=== PATIENT | female | born 1970 | race Caucasian/White ===

== ENCOUNTER 2024-01-12 10:10 | Outpatient (AMB) | payer OTHER, SELFPAY ==
[2024-01-12 10:37] VITALS: BP 134/76; PULSE 77; O2SAT 98; BMI 43.9
--- NOTE | 2024-01-12 10:37 | MHC.PC.OV ---
Vital Signs 01/12/24 10:37 Height 5 ft 9 in Weight 297 lb BMI 43.9 BP 134/76 Blood Pressure Location Lt brachial Position Sitting Pulse 77 Pulse Source Pulse Oximeter Pulse Oximetry (%) 98 Oxygen Delivery Method Room Air Intake Visit Reasons: Annual physical Intake Note: Weight management Allergies No Known Allergies Allergy (Verified 01/12/24 10:38) Medication List - Last Reconciled 01/12/24 by Shahram Jeffery MD No Known Home Meds Tobacco use date assessed: 01/12/24 Dental Screening Dental Screen Date: 01/12/24 Did you have a dental visit in the last 12 months?: Yes Did you have a dental problem in the last 6 months where you did not have access to dental care?: No Was dental information given to patient?: Patient has dentist HPI Annual physical HPI Details 53-year-old morbidly obese female with a history of Guillain-[place] coming in for physical exam last seen in 2020. Patient was referred for colon cancer screening. 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 Daughter No problems noted. Other Colon cancer Social History (Updated 01/12/24 @ 11:12 by Shahram Jeffery MD) Housing: House Alcohol intake: current Comment: once a week 1 drink Patient Tobacco Use Status: Never used Tobacco e-Cigarette/Vaping Use: Never Used Second Hand Smoke Exposure: No service: No Current occupational status: employed Cognitive needs: No Hearing needs: No Vision needs: Yes Questionnaire PHQ-9 Over the last 2 weeks, how often have you been bothered by any of the following problems? 1. Little interest or pleasure in doing things: more than half the days 2. Feeling down, depressed, or hopeless: more than half the days 3. Trouble falling or staying asleep, or sleeping too much: more than half the days 4. Feeling tired or having little energy: more than half the days 5. Poor appetite or overeating: several days 6. Feeling bad about yourself - or that you are a failure or have let yourself or your family down: not at all 7. Trouble concentrating on things, such as reading the newspaper or watching television: more than half the days 8. Moving or speaking so slowly that other people could have noticed. Or the opposite - being so fidgety or restless that you have been moving around a lot more than usual: not at all 9. Thoughts that you would be better off or of hurting yourself in some way: not at all Total score: 11 Depression Screening Interpretation: Positive Depression Screening Done: Yes Source: Developed by Drs. Sanjiv Conley, Gabby Peterson, Jair Restrepo and colleagues, with an educational melissa from [employer]. Thrive Questionnaire Date Thrive assessed: 01/12/24 I am a: Patient What is your living situation today?: I have a steady place to live Within the past 12 months, did the food you bought not last and you didn't have the money to get more?: Never true Within the past 12 months, did you worry whether your food would run out before you got money to buy more?: Never true Do you have trouble paying for medicines?: No Do you have trouble getting transportation to medical appointments?: No Do you have trouble paying your heating and electricity bill?: No Do you have trouble taking care of your child, family member or friend?: No Do you have trouble with day-to-day activities such as bathing, preparing meals, shopping, managing finances, etc.?: No Are you currently unemployed and looking for a job?: No Are you interested in more education?: No Currently or been in a relationship where the following occur: no concerns reported THRIVE Score: 0 AUDIT C Alcohol Use Questionnaire (AUDIT-C) 1. How often do you have a drink containing alcohol?: Monthly or less 2. How many drinks containing alcohol do you have on a typical day when you are drinking?: 1 or 2 3. How often do you have six or more drinks on one occasion?: Never Total Score: 1 RHIANNA-7 AMB Questionnaire RHIANNA-7 Date RHIANNA - 7 assessed: 01/12/24 Feeling nervous, anxious, or on edge: 1 = Several days Not being able to stop or control worryin = Several days Worrying too much about different things: 1 = Several days Trouble relaxin = Several days Being so restless that it is hard to sit still: 1 = Several days Becoming easily annoyed or irritable: 1 = Several days Feeling afraid as if something awful might happen: 1 = Several days Total RHIANNA-7 score (0-4 normal; 5-9 mild; 10-14 moderate; 15-21 severe): 7 Source: Developed by Drs. Sanjiv Conley, Gabby Peterson, Jair Restrepo and colleagues, with an educational melissa from [employer]. Review of Systems Const Denies poor appetite and Denies weakness Eyes Denies no additional complaints ENT Reports Normal hearing present, Denies dizziness, Denies nasal congestion, Denies tinnitus and Denies sore throat Card Denies chest pain, Denies syncope, Denies rapid heart rate and Denies dyspnea Resp Denies cough and Denies dyspnea GI Denies change in stool character, Reports constipation, Denies diarrhea, Denies nausea and Denies vomiting Denies urinary frequency, Denies difficulty voiding and Denies dysuria Neuro Reports Normal hearing present, Denies confusion, Denies dizziness, Denies syncope and Denies weakness Psych Denies confusion Physical exam (Primary Care) Vital Signs: Last Vital Signs Pulse 77 01/12/24 10:37 BP 134/76 01/12/24 10:37 Pulse Ox 98 01/12/24 10:37 Oxygen Delivery Method Room Air 01/12/24 10:37 BMI result Body Mass Index 43.9 Tobacco/Smoking Status: Tobacco use Status Tobacco use date assessed 01/12/24 01/12/24 10:44 Patient Tobacco Use Status Never used Tobacco 01/12/24 10:37 e-Cigarette/Vaping Use Never Used 01/12/24 10:37 PHQ-9: PHQ-9 Score PHQ-9: Total score 11 01/12/24 10:44 Depression Screening Interpretation: Positive Thrive Assessment: Date of Thrive Assessment Date Thrive assessed 01/12/24 01/12/24 10:44 Currently or been in a relationship where the following occur: no concerns reported Const General: No confusion Orientation/consciousness: No confusion HENMT Head: Yes normocephalic Ears: external ears normal and TM's normal bilaterally Face and sinus: Yes normal facial exam Mouth: moist mucous membranes Throat: Yes tonsils normal Eyes Conjunctivae: conjunctivae normal Pupils: Equal, round and reactive pupils present and Pupil accommodation reflex normal Direct Ophthalmoscopy: normal light reflex Neck Neck: No lymphadenopathy Thyroid: Thyroid normal Chest Chest palpation & inspection: normal inspection of the chest Resp Effort & Inspection: normal respiratory effort and no audible wheezes Auscultation: clear to auscultation bilaterally, no crackles, no wheezes and lung sounds not diminished Cardio Rate: regular rate Rhythm: regular rhythm Peripheral pulses: radial pulses present and dorsalis pedis present GI Palpation (GI): no masses Auscultation: normal bowel sounds and normoactive bowel sounds Rectal Exam - Female: deferred Skin General skin exam: no rashes or lesions noted Rashes: no rashes Neuro General: No confusion Cranial nerves: Yes Equal, round and reactive pupils present and Yes Normal hearing present Cognition (Neuro): normal cognition Gait exam (Neuro): Normal gait present Motor exam (neuro): 5/5 motor strength present throughout Deep tendon reflexes (DTR's): Right brachioradialis reflex intensity grade: 2+, Left brachioradialis reflex intensity grade: 2+, Right patellar reflex intensity grade: 2+ and Left patellar reflex intensity grade: 2+ Extrem General: No edema Assessment and Plan Assessment & Plan (1) Annual physical exam: Code(s): Z00.00 - Encounter for general adult medical examination without abnormal findings (2) Morbid obesity: Code(s): E66.01 - Morbid (severe) obesity due to excess calories Plan: Diet and exercise (3) Colon cancer screening: Code(s): Z12.11 - Encounter for screening for malignant neoplasm of colon Plan: Patient is reminded about colon cancer screening (4) Breast cancer screening by mammogram: Code(s): Z12.31 - Encounter for screening mammogram for malignant neoplasm of breast Plan: Patient is reminded about mammogram (5) Vaginal high risk HPV DNA test positive: Code(s): R87.811 - Vaginal high risk human papillomavirus (HPV) DNA test positive Plan: Continue to follow-up with gynecology for yearly Pap smear (6) Hammer toe of right foot: Code(s): M20.41 - Other hammer toe(s) (acquired), right foot (7) Bunion: Code(s): M21.619 - Bunion of unspecified foot (8) Ankle pain, left: Code(s): M25.572 - Pain in left ankle and joints of left foot Orders: Orders Thyroid Stimulating Hormone Today E66.01 - Morbid (severe) obesity due to excess calories Free T4 (Free Thyroxine) Today E66.01 - Morbid (severe) obesity due to excess calories Vitamin D 25-OH Total Today E66.01 - Morbid (severe) obesity due to excess calories XR ankle LT min 3V Today M25.572 - Pain in left ankle and joints of left foot Complete Blood Count Auto Diff Today E66.01 - Morbid (severe) obesity due to excess calories Comprehensive Met. Panel Today E66.01 - Morbid (severe) obesity due to excess calories Lipid Panel Today E66.01 - Morbid (severe) obesity due to excess calories, E78.00 - Pure hypercholesterolemia, unspecified Vitamin B12 and Folate Today E66.01 - Morbid (severe) obesity due to excess calories Referrals Podiatry Referral M20.41 - Other hammer toe(s) (acquired), right foot, M21.619 - Bunion of unspecified foot Orthopedics Referral M25.572 - Pain in left ankle and joints of left foot Gastroenterology Referral Z12.11 - Encounter for screening for malignant neoplasm of colon Medications: New semaglutide (weight loss) (Wegovy) administer weeks 1 through 4 of therapy 0.25 mg (0.5 mL) subcut QWEEK 2 mL 1RF E66.01 - Morbid (severe) obesity due to excess calories Coding Level of Care Code Est Pt Prev Care 40-64y(23453) Diagnoses Annual physical exam Z00.00 Morbid obesity E66.01 Colon cancer screening Z12.11 Breast cancer screening by mammogram Z12.31 Vaginal high risk HPV DNA test positive R87.811 Hammer toe of right foot M20.41 Bunion M21.619 Ankle pain, left M25.572
== END 2024-01-12 11:34 | disposition home or self-care (01) ==
PROVIDERS: PCP Internal Medicine; Visit Provider Internal Medicine
DX: Z00.00 Encounter for general adult medical examination without abnormal findings (principal); E66.01 Morbid (severe) obesity due to excess calories; Z12.11 Encounter for screening for malignant neoplasm of colon; Z68.41 Body mass index [BMI] 40.0-44.9, adult; Z12.31 Encounter for screening mammogram for malignant neoplasm of breast; R87.811 Vaginal high risk human papillomavirus (HPV) DNA test positive; M20.41 Other hammer toe(s) (acquired), right foot; M21.619 Bunion of unspecified foot; M25.572 Pain in left ankle and joints of left foot
CPT/HCPCS: 99396

== ENCOUNTER 2024-02-07 09:05 | Outpatient (AMB) | payer OTHER, SELFPAY ==
--- NOTE | 2024-02-07 09:25 | A.OFFVIS_ITS ---
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 Patient reports that she was previously seen by Dr. Hernandez in the past for a broken ankle 2x. Currently she has constant swelling that increases throughout the day. She has a decrease in her ROM. 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 She states she has pain, limited ROM as well as constant swelling that aggravates throughout the day. She was previously seen by Dr. Hernandez for her pain. She has not had physical therapy in the past. [facility] Medical History (Updated 02/07/24 @ 10:00 by Mike Holman PA-C) Guillain [place]? syndrome Surgical History Hx of laparoscopic gastric banding Family History (Updated 01/12/24 @ 11:12 by Shahram Jeffery MD) Mother Lung cancer Father Skin cancer Son No problems noted. Daughter No problems noted. Other Colon cancer Social History (Updated 01/12/24 @ 11:12 by Shahram Jeffery MD) Housing: House Alcohol intake: current Comment: once a week 1 drink Patient Tobacco Use Status: Never used Tobacco e-Cigarette/Vaping Use: Never Used Second Hand Smoke Exposure: No service: No Current occupational status: employed Cognitive needs: No Hearing needs: No Vision needs: Yes Review of Systems Const All systems reviewed & are unremarkable except as noted in HPI and below Physical Exam Const General: cooperative, healthy appearing, comfortable, no acute distress, well developed and alert Orientation/consciousness: patient oriented x3 HEENT Head: Yes normal to inspection, Yes normocephalic and Yes atraumatic Eyes General: appearance normal, both eyes and all related structures Resp Effort & Inspection: normal respiratory effort and able to speak in complete sentences Cardio Rate: regular rate Peripheral pulses: Peripheral pulses 2+ throughout GI Palpation (GI): Soft to palpation Skin Lesions: no lesions Rashes: no rashes Neuro General: patient oriented x3 Extrem Other: Left ankle: Normal to inspection with diffuse tenderness over the dorsum of the foot, no deformity along the Achilles tendon, negative Giordano?s. No pain along the syndesmosis or anterior tibia. No laxity, NVI. Results Reviewed Results Reviewed: Xrays were obtained in the office today and personally reviewed by me of the right ankle show oa , ankle mortise intact. Assessment & Plan Assessment & Plan (1) Osteoarthritis of left ankle: Code(s): M19.072 - Primary osteoarthritis, left ankle and foot Category: Medical (2) Osteoarthritis of left foot: Code(s): M19.072 - Primary osteoarthritis, left ankle and foot Category: Medical Plan At this time, we will proceed with a course of physical therapy which was ordered in the office today. I also recommend she uses the ankle support brace for stabilization while walking and activities. If symptoms persist or worsens or she has significant limitations, patient will contact the office for a referral to foot and ankle specialist, otherwise follow-up as needed. Orders: Orders XR ankle LT min 3V Today M25.572 - Pain in left ankle and joints of left foot PT Evaluation and Treatment Today M19.072 - Primary osteoarthritis, left ankle and foot Patient Instructions: Scribed for Mike Holman PA-C, by Ovidio Talavera medical van driver, on 02/07/2024 at 9:15 AM EST.? I, Mike Holman PA-C, have personally reviewed and agree with the information entered by the scribe. Coding Level of Care Code New Pt Level 3 (93225) Diagnoses Osteoarthritis of left ankle M19.072 Osteoarthritis of left foot M19.072
[2024-02-07 10:51] VITALS: BMI 43.9
== END 2024-02-07 10:45 | disposition home or self-care (01) ==
PROVIDERS: PCP Internal Medicine; Visit Provider Physician Assistant
DX: M19.072 Primary osteoarthritis, left ankle and foot (principal)
CPT/HCPCS: 99203

== ENCOUNTER 2024-02-07 12:54 | Outpatient (REF) | payer OTHER, SELFPAY ==
--- NOTE | ~2024-02-07 | XR_ITS ---
EXAMINATION: XR ANKLE, LEFT CLINICAL INFORMATION: Pain in left ankle and joints of foot. COMPARISON: X-ray June 18, 2015 left foot. TECHNIQUE: AP, lateral, and mortise views of the left ankle. FINDINGS: Bones are diffusely demineralized. Joint effusion. Soft tissue swelling. Severe degenerative changes with hypertrophic change, loss of the joint space and remodeling at the talonavicular joint. Diffuse soft tissue swelling at the ankle. Joint effusion. XR/XR ankle LT min 3V IMPRESSION: 1. Interval progression of severe degenerative changes at the talonavicular joint. 2. Diffuse soft tissue swelling at the ankle. Joint effusion.
== END 2024-02-07 12:55 | disposition home or self-care (01) ==
LOC: HO.HOSX 12:54
PROVIDERS: Visit Provider Physician Assistant
DX: M25.572 Pain in left ankle and joints of left foot (principal)
CPT/HCPCS: 73610

== ENCOUNTER 2024-04-15 13:13 | Outpatient (AMB) | payer OTHER, SELFPAY ==
--- NOTE | 2024-04-15 13:20 | MHC.OFFVIS ---
Vital Signs 04/15/24 13:21 Height 5 ft 9 in Weight 268 lb 15.423 oz BMI 39.7 BP 106/55 L Blood Pressure Location Lt brachial Position Sitting Pulse 70 Intake Visit Reasons: Colonoscopy Screening Intake Note: Kirstie presents in the office as a colonoscopy screening. CC: She states that she is not having any concerns - passed a year ago and she is here to make sure that everything is good. 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 female with past medical history of osteoarthritis, obesity, Guillain [place] syndrome is here today for pre colonoscopy screening.? Patient was sent to us by her PCP.? This is her first colonoscopy screening.? Patient denies any gastrointestinal symptoms in the past or at present.? Denies any personal or family history of gastrointestinal disease, colon polyps, or CRC.? Denies history of difficulty with sedation or anesthesia in the past.? Negative for history of sleep apnea.? Denies any history of cardiac, renal, pulmonary, or hepatic disease.?? No history of infectious? diseases like hepatitis A, B, C, HIV or tuberculosis.? 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 Daughter No problems noted. Family/Other Colon cancer Mother Lung cancer Social History Housing: House Alcohol intake: current Comment: once a week 1 drink Patient Tobacco Use Status: Never used Tobacco e-Cigarette/Vaping Use: Never Used Second Hand Smoke Exposure: No service: No Current occupational status: employed Cognitive needs: No Hearing needs: No Vision needs: Yes Review of Systems Const Denies weight gain and Denies weight loss ENT Reports no additional complaints, Denies dysphagia and Denies odynophagia Card Reports no additional complaints Resp Reports no additional complaints GI Denies abdominal pain, Denies belching, Denies melena, Denies bloating, Denies change in bowel habits, Denies dysphagia, Denies excessive flatus, Denies dyspepsia, Denies heartburn, Denies diarrhea, Denies loose stools, Denies nausea, Denies odynophagia and Denies vomiting Musc Reports no additional complaints Neuro Reports no additional complaints Psych Reports no additional complaints Endo Reports no additional complaints Physical Exam Vital Signs: Last Vital Signs Pulse 70 04/15/24 13:21 BP 106/55 L 04/15/24 13:21 BMI result Body Mass Index 39.7 Const General: healthy appearing and no acute distress Nutritional Appearance: obese Orientation/consciousness: patient oriented x3 Resp Effort & Inspection: normal respiratory effort, able to speak in complete sentences, no tracheal deviation and symmetric chest movement Auscultation: clear to auscultation bilaterally Cardio Rate: regular rate GI Inspection: Yes normal to inspection, No distended and Yes obesity Palpation (GI): Soft to palpation, not firm, nontender and No hepatosplenomegaly present Auscultation: normal bowel sounds General: Yes no CVA tenderness Back/Spine/Pelvis Back: no CVA tenderness Skin General skin exam: elasticity normal, turgor normal and dry skin Neuro General: patient oriented x3 Psych Appearance: grossly normal Mental Status: mental status grossly normal Assessment & Plan Assessment & Plan (1) Colon cancer screening: Code(s): Z12.11 - Encounter for screening for malignant neoplasm of colon Category: Medical Plan Patient denies any GI, cardiac or respiratory symptoms.? Denies any issues with anesthesia in the past.? Denies any history of sleep apnea.? No history infectious diseases in the past or present.? Not on any anticoagulation therapy.? Patient is on semaglutide. Instructed to stop taking more than 7 days before she goes for procedure. Patient believes that she will be on it for maybe couple more months so she can loose little bit more lb. Patient does not want to be on it for a long period of time. No family or personal history of colon cancer or polyps.? Patient denies melena, hematochezia, unintentional weight loss or ribbon like stools.? Discussed at length the pre-procedure,? prep, diet & medications as well as what to expect prior, during and after the procedure.?? Stressed the importance of good bowel prep.? Recommended the use of Vaseline or Calmoseptine OTC & baby wipes with bowel movements to promote comfort.? ?Patient verbalizes understanding and agrees to plan of care.? She was given the opportunity to ask questions and all questions answered.? We will see her after the procedure.? Medications: New bisacodyl (Dulcolax (bisacodyl)) take 4 tabs at noon the day before your colonoscopy 20 mg (4 x 5 mg) PO ONCE 4 tabs 0RF 1 day Z12.11 - Encounter for screening for malignant neoplasm of colon polyethylene glycol 3350 (Miralax) As directed by gastroenterology department at [facility] 238 grams PO ONCE 238 grams 0RF Z12.11 - Encounter for screening for malignant neoplasm of colon Coding Level of Care Code New Pt Level 3 (39904) Diagnoses Colon cancer screening Z12.11 Time Spent (min) 40 Comment 30 minutes spent with patient and additional 10 minutes spent reviewing her records
[2024-04-15 13:21] VITALS: BP 106/55; PULSE 70; BMI 39.7
== END 2024-04-15 14:07 | disposition home or self-care (01) ==
PROVIDERS: PCP Internal Medicine; Visit Provider Nurse Practitioner Family
DX: Z01.818 Encounter for other preprocedural examination (principal); Z12.11 Encounter for screening for malignant neoplasm of colon
CPT/HCPCS: S0285

== ENCOUNTER → 2024-04-15 13:13 | Outpatient (BNVA) | payer OTHER, SELFPAY | PROVIDERS: PCP Internal Medicine; Visit Provider Nurse Practitioner Family ==

== ENCOUNTER 2024-04-25 13:21 | Outpatient (AMB) | payer OTHER, SELFPAY ==
[2024-04-25 13:21] VITALS: BP 128/88; PULSE 75; O2SAT 99; BMI 39.4
--- NOTE | 2024-04-25 13:21 | MHC.PC.OV ---
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 Patient is mammogram is done in [facility]. Colonoscopy has met with Gastroenterology and planning for colon test saw Dermatology recently. For angioma, seborrheic keratosis lentiginous nevi and eczema. Had an x-ray of the left ankle showing severe degenerative changes with some swelling. Advised physical therapy and ankle brace. 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 Daughter No problems noted. Family/Other Colon cancer Mother Lung cancer Social History Housing: House Alcohol intake: current Comment: once a week 1 drink Patient Tobacco Use Status: Never used Tobacco e-Cigarette/Vaping Use: Never Used Second Hand Smoke Exposure: No service: No Current occupational status: employed Cognitive needs: No Hearing needs: No Vision needs: Yes Questionnaire PHQ-9 Over the last 2 weeks, how often have you been bothered by any of the following problems? 1. Little interest or pleasure in doing things: more than half the days 2. Feeling down, depressed, or hopeless: more than half the days 3. Trouble falling or staying asleep, or sleeping too much: more than half the days 4. Feeling tired or having little energy: more than half the days 5. Poor appetite or overeating: several days 6. Feeling bad about yourself - or that you are a failure or have let yourself or your family down: not at all 7. Trouble concentrating on things, such as reading the newspaper or watching television: more than half the days 8. Moving or speaking so slowly that other people could have noticed. Or the opposite - being so fidgety or restless that you have been moving around a lot more than usual: not at all 9. Thoughts that you would be better off or of hurting yourself in some way: not at all Total score: 11 Depression Screening Interpretation: Positive Depression Screening Done: Yes Source: Developed by Drs. Sanjiv Conley, Gabby Peterson, Jair Restrepo and colleagues, with an educational melissa from [employer]. Thrive Questionnaire Date Thrive assessed: 01/12/24 AUDIT C Alcohol Use Questionnaire (AUDIT-C) 1. How often do you have a drink containing alcohol?: Monthly or less 2. How many drinks containing alcohol do you have on a typical day when you are drinking?: 1 or 2 3. How often do you have six or more drinks on one occasion?: Never Total Score: 1 RHIANNA-7 AMB Questionnaire RHIANNA-7 Date RHIANNA - 7 assessed: 01/12/24 Source: Developed by Drs. Sanjiv Conley, Gabby Peterson, Jair Restrepo and colleagues, with an educational melissa from [employer]. Physical exam (Primary Care) Vital Signs: Last Vital Signs Pulse 75 04/25/24 13:21 BP 128/88 04/25/24 13:21 Pulse Ox 99 04/25/24 13:21 Oxygen Delivery Method Room Air 04/25/24 13:21 BMI result Body Mass Index 39.4 Tobacco/Smoking Status: Tobacco use Status Tobacco use date assessed 01/12/24 04/25/24 13:28 Patient Tobacco Use Status Never used Tobacco 04/25/24 13:28 e-Cigarette/Vaping Use Never Used 04/25/24 13:28 PHQ-9: PHQ-9 Score PHQ-9: Total score 11 04/25/24 13:28 Depression Screening Interpretation: Positive Thrive Assessment: Date of Thrive Assessment Date Thrive assessed 01/12/24 04/25/24 13:28 Const General: alert; No acute distress Eyes Conjunctivae: conjunctivae normal Resp Auscultation: clear to auscultation bilaterally Cardio Rate: regular rate Rhythm: regular rhythm GI Inspection: Yes normal to inspection Extrem General: Yes normal to inspection and No edema Assessment and Plan Assessment & Plan (1) Osteoarthritis of left ankle: Code(s): M19.072 - Primary osteoarthritis, left ankle and foot Plan: Patient is being followed up by ortho and has been advised physical therapy and an ankle brace. Was being referred to a specialist. (2) Obesity (BMI 30-39.9): Code(s): E66.9 - Obesity, unspecified Plan: Diet and exercise, noted 30 lb weight loss (3) Colon cancer screening: Code(s): Z12.11 - Encounter for screening for malignant neoplasm of colon Plan: Patient has met with Gastroenterology and planned colonoscopy. Coding Level of Care Code Est Pt Level 4 (47213) Diagnoses Osteoarthritis of left ankle M19.072 Obesity (BMI 30-39.9) E66.9 Colon cancer screening Z12.11
== END 2024-04-25 14:34 | disposition home or self-care (01) ==
PROVIDERS: PCP Internal Medicine; Visit Provider Internal Medicine
DX: M19.072 Primary osteoarthritis, left ankle and foot (principal); E66.9 Obesity, unspecified; Z12.11 Encounter for screening for malignant neoplasm of colon; Z68.39 Body mass index [BMI] 39.0-39.9, adult
CPT/HCPCS: 99214

== ENCOUNTER 2024-09-09 16:38 | Outpatient (AMB) | payer OTHER, SELFPAY ==
[2024-09-09 16:42] VITALS: BP 114/66; PULSE 96; O2SAT 95; BMI 36.1
--- NOTE | 2024-09-09 16:42 | MHC.PC.OV ---
Vital Signs 09/09/24 16:42 Height 5 ft 9 in Weight 244 lb 6 oz BMI 36.1 BP 114/66 Blood Pressure Location Lt brachial Position Sitting Pulse 96 Pulse Source Pulse Oximeter Pulse Oximetry (%) 95 Oxygen Delivery Method Room Air Intake Visit Reasons: Obesity Allergies No Known Allergies Allergy (Verified 09/09/24 16:46) Tobacco use date assessed: 09/09/24 Dental Screening Dental Screen Date: 09/09/24 Did you have a dental visit in the last 12 months?: Yes Did you have a dental problem in the last 6 months where you did not have access to dental care?: No Was dental information given to patient?: Patient has dentist HPI Obesity HPI Details The patient is a 54-year-old female presenting with a follow-up for weight management. The patient reports significant weight loss of 58 pounds, down from a previous maximum weight noted in her medical records. Over the course of this weight loss, the patient notes difficulty in reducing weight beyond the current level, with a target weight of 200 pounds. Despite the weight loss, the patient has discussed with her OBGYN that there remains approximately 10 to 15 pounds attributable to excess skin due to previous weight gain and childbirth. She uses a weight loss medication and expresses satisfaction with its current effectiveness, allowing her to feel less hunger. However, she shows a desire to discontinue its use in the future. The patient practices high protein dietary habits and has not eliminated specific foods but has altered her overall consumption pattern and environment, aiming at healthy weight management. 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 Despite this contraindication, she has successfully avoided COVID-19 infection. The patient is scheduled to travel to the [facility] for the first time. Her concern is about potential infections due to crowded environments and a lack of vaccinations. She plans to follow preventive measures during travel, including the use of masks. The patient has no symptoms of leg swelling and is mindful of familial history but takes preventative measures. She is also scheduled to have a colonoscopy and has been advised to withhold a particular treatment until after the procedure. She practices working remotely, maintaining safety against respiratory viruses during the flu season. 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 Daughter No problems noted. Family/Other Colon cancer Mother Lung cancer Social History Housing: House Alcohol intake: current Comment: once a week 1 drink Patient Tobacco Use Status: Never used Tobacco e-Cigarette/Vaping Use: Never Used Second Hand Smoke Exposure: No service: No Current occupational status: employed Cognitive needs: No Hearing needs: No Vision needs: Yes Questionnaire PHQ-9 Over the last 2 weeks, how often have you been bothered by any of the following problems? 1. Little interest or pleasure in doing things: more than half the days 2. Feeling down, depressed, or hopeless: more than half the days 3. Trouble falling or staying asleep, or sleeping too much: more than half the days 4. Feeling tired or having little energy: more than half the days 5. Poor appetite or overeating: several days 6. Feeling bad about yourself - or that you are a failure or have let yourself or your family down: not at all 7. Trouble concentrating on things, such as reading the newspaper or watching television: more than half the days 8. Moving or speaking so slowly that other people could have noticed. Or the opposite - being so fidgety or restless that you have been moving around a lot more than usual: not at all 9. Thoughts that you would be better off or of hurting yourself in some way: not at all Total score: 11 Depression Screening Interpretation: Positive Depression Screening Done: Yes Source: Developed by Drs. Sanjiv Conley, Gabby Peterson, Jair Restrepo and colleagues, with an educational melissa from [employer]. Thrive Questionnaire Date Thrive assessed: 09/09/24 I am a: Patient What is your living situation today?: I have a steady place to live Within the past 12 months, did the food you bought not last and you didn't have the money to get more?: Never true Within the past 12 months, did you worry whether your food would run out before you got money to buy more?: Never true Do you have trouble paying for medicines?: No Do you have trouble getting transportation to medical appointments?: No Do you have trouble paying your heating and electricity bill?: No Do you have trouble taking care of your child, family member or friend?: No Do you have trouble with day-to-day activities such as bathing, preparing meals, shopping, managing finances, etc.?: No Are you currently unemployed and looking for a job?: No Are you interested in more education?: No THRIVE Score: 0 AUDIT C Alcohol Use Questionnaire (AUDIT-C) 1. How often do you have a drink containing alcohol?: Monthly or less 2. How many drinks containing alcohol do you have on a typical day when you are drinking?: 1 or 2 3. How often do you have six or more drinks on one occasion?: Never Total Score: 1 RHIANNA-7 AMB Questionnaire RHIANNA-7 Date RHIANNA - 7 assessed: 09/09/24 Feeling nervous, anxious, or on edge: 1 = Several days Not being able to stop or control worryin = Several days Worrying too much about different things: 1 = Several days Trouble relaxin = Several days Being so restless that it is hard to sit still: 1 = Several days Becoming easily annoyed or irritable: 1 = Several days Feeling afraid as if something awful might happen: 1 = Several days Total RHIANNA-7 score (0-4 normal; 5-9 mild; 10-14 moderate; 15-21 severe): 7 Source: Developed by Drs. Sanjiv Conley, Gabby Peterson, Jair Restrepo and colleagues, with an educational melissa from [employer]. Physical exam (Primary Care) Vital Signs: Last Vital Signs Pulse 96 09/09/24 16:42 BP 114/66 09/09/24 16:42 Pulse Ox 95 09/09/24 16:42 Oxygen Delivery Method Room Air 09/09/24 16:42 BMI result Body Mass Index 36.1 Tobacco/Smoking Status: Tobacco use Status Tobacco use date assessed 09/09/24 09/09/24 16:48 Patient Tobacco Use Status Never used Tobacco 09/09/24 16:42 e-Cigarette/Vaping Use Never Used 09/09/24 16:42 PHQ-9: PHQ-9 Score PHQ-9: Total score 11 09/09/24 17:04 Depression Screening Interpretation: Positive Thrive Assessment: Date of Thrive Assessment Date Thrive assessed 09/09/24 09/09/24 16:48 Const General: alert; No acute distress Eyes Conjunctivae: conjunctivae normal Resp Auscultation: clear to auscultation bilaterally Cardio Rate: regular rate Rhythm: regular rhythm GI Inspection: Yes normal to inspection Extrem General: Yes normal to inspection and No edema Coding Level of Care Code Est Pt Level 3 (00607) Diagnoses Obesity (BMI 30-39.9) E66.9 Assessment & Plan Assessment & Plan (1) Obesity (BMI 30-39.9): Code(s): E66.9 - Obesity, unspecified Category: Medical Plan: doing good lost 58 lbs all in all Plan - The patient will continue with her current weight loss medication, with plans to reduce its use once desired weight goals are achieved. Further high-protein dietary modifications will be encouraged, without complete elimination of food groups, ensuring sustained health. 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 - The patient will attend a scheduled colonoscopy and will resume regular medication regimen post-procedure as advised by the bookkeeper assistant. - For travel to the [facility], the patient is advised to use KN95 masks and maintain rigorous hand hygiene to avoid respiratory and gastrointestinal infections. The patient will also monitor for symptoms of respiratory or gastrointestinal distress during and after travel. - Regular physical activity and nutrition management will be emphasized for continued weight maintenance and avoidance of comorbid conditions. Medications: Refilled semaglutide (weight loss) administer weeks 1 through 4 of therapy 1 mg (0.5 mL) subcut QWEEK 2.5 mL 4RF 1 month E66.01 - Morbid (severe) obesity due to excess calories
== END 2024-09-09 17:13 | disposition home or self-care (01) ==
PROVIDERS: PCP Internal Medicine; Visit Provider Internal Medicine
DX: E66.812 Obesity, class 2 (principal); Z68.36 Body mass index [BMI] 36.0-36.9, adult

== ENCOUNTER 2024-12-09 14:42 | Outpatient (AMB) | payer OTHER, SELFPAY ==
[2024-12-09 14:50] VITALS: BP 110/84; PULSE 71; TEMP 36.2; O2SAT 99; BMI 35.8
--- NOTE | 2024-12-09 14:50 | A.OFFPC_ITS ---
Vital Signs 12/09/24 14:50 Height 5 ft 9 in Weight 242 lb 8 oz BMI 35.8 BP 110/84 Blood Pressure Location Lt brachial Position Sitting Pulse 71 Pulse Source Pulse Oximeter Temp 97.1 F Temp Source Temporal Artery Scan Pulse Oximetry (%) 99 Oxygen Delivery Method Room Air Intake Visit Reasons: 3 Months f/u Allergies No Known Allergies Allergy (Verified 12/09/24 14:53) Medication List - Last Reconciled 12/09/24 by Shahram Jeffery MD semaglutide (weight loss) 1.7 mg (0.75 mL) subcut QWEEK 1 month Tobacco use date assessed: 12/09/24 Dental Screening Dental Screen Date: 12/09/24 Did you have a dental visit in the last 12 months?: Yes Did you have a dental problem in the last 6 months where you did not have access to dental care?: No Was dental information given to patient?: Patient has dentist [facility] Medical History Ankle pain, left Morbid obesity 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 Daughter No problems noted. Family/Other Colon cancer Mother Lung cancer Social History Housing: House Are you a primary lawn care professional to a significant other at home: No Do you presently have visiting nurse or other home services: No Alcohol intake: current Alcohol intake frequency: a few times a month Comment: once a week 1 drink Patient Tobacco Use Status: Never used Tobacco e-Cigarette/Vaping Use: Never Used Second Hand Smoke Exposure: No service: No Current occupational status: employed Cognitive needs: No Hearing needs: No Vision needs: Yes Questionnaire PHQ-9 Over the last 2 weeks, how often have you been bothered by any of the following problems? 1. Little interest or pleasure in doing things: not at all 2. Feeling down, depressed, or hopeless: not at all 3. Trouble falling or staying asleep, or sleeping too much: not at all 4. Feeling tired or having little energy: not at all 5. Poor appetite or overeating: not at all 6. Feeling bad about yourself - or that you are a failure or have let yourself or your family down: not at all 7. Trouble concentrating on things, such as reading the newspaper or watching television: not at all 8. Moving or speaking so slowly that other people could have noticed. Or the opposite - being so fidgety or restless that you have been moving around a lot more than usual: not at all 9. Thoughts that you would be better off or of hurting yourself in some way: not at all Total score: 0 Depression Screening Interpretation: Negative Depression Screening Done: Yes 11341 - PHQ-9 Billing: Yes Source: Developed by Drs. Sanjiv Conley, Gabby Peterson, Jair Restrepo and colleagues, with an educational melissa from [employer] ([place]). Thrive Questionnaire Date Thrive assessed: 12/09/24 I am a: Patient What is your living situation today?: I have a steady place to live Within the past 12 months, did the food you bought not last and you didn't have the money to get more?: Never true Within the past 12 months, did you worry whether your food would run out before you got money to buy more?: Never true Do you have trouble paying for medicines?: No Do you have trouble getting transportation to medical appointments?: No Do you have trouble paying your heating and electricity bill?: No Do you have trouble taking care of your child, family member or friend?: No Do you have trouble with day-to-day activities such as bathing, preparing meals, shopping, managing finances, etc.?: No Are you currently unemployed and looking for a job?: No Are you interested in more education?: No THRIVE Score: 0 AUDIT C Alcohol Use Questionnaire (AUDIT-C) 1. How often do you have a drink containing alcohol?: Monthly or less 2. How many drinks containing alcohol do you have on a typical day when you are drinking?: 1 or 2 3. How often do you have six or more drinks on one occasion?: Less than monthly Total Score: 2 RHIANNA-7 AMB Questionnaire RHIANNA-7 Date RHIANNA - 7 assessed: 12/09/24 Feeling nervous, anxious, or on edge: 0 = Not at all Not being able to stop or control worryin = Not at all Worrying too much about different things: 0 = Not at all Trouble relaxin = Not at all Being so restless that it is hard to sit still: 0 = Not at all Becoming easily annoyed or irritable: 0 = Not at all Feeling afraid as if something awful might happen: 0 = Not at all Total RHIANNA-7 score (0-4 normal; 5-9 mild; 10-14 moderate; 15-21 severe): 0 Source: Developed by Drs. Sanjiv Conley, Gabby Peterson, Jair Restrepo and colleagues, with an educational melissa from [employer] ([place]). RHIANNA-7 Assessment Billing RHIANNA-7 Assessment Tool: RHIANNA-7 Assessment 15462 Physical exam (Primary Care) Vital Signs: Last Vital Signs Temp 97.1 F 12/09/24 14:50 Pulse 71 12/09/24 14:50 BP 110/84 12/09/24 14:50 Pulse Ox 99 12/09/24 14:50 Oxygen Delivery Method Room Air 12/09/24 14:50 BMI result Body Mass Index 35.8 Tobacco/Smoking Status: Tobacco use Status Tobacco use date assessed 12/09/24 12/09/24 14:56 Patient Tobacco Use Status Never used Tobacco 12/09/24 14:52 e-Cigarette/Vaping Use Never Used 12/09/24 14:52 PHQ-9: PHQ-9 Score PHQ-9: Total score 0 12/09/24 14:56 Depression Screening Interpretation: Negative Thrive Assessment: Date of Thrive Assessment Date Thrive assessed 12/09/24 12/09/24 14:56 Const General: alert; No acute distress Eyes Conjunctivae: conjunctivae normal Resp Auscultation: clear to auscultation bilaterally Cardio Rate: regular rate Rhythm: regular rhythm GI Inspection: Yes normal to inspection Extrem General: Yes normal to inspection and No edema Coding Level of Care Code Est Pt Level 4 (25486) Diagnoses Obesity (BMI 30-39.9) E66.9 Raynaud disease I73.00 Diverticular disease K57.90 Additional Codes RHIANNA-7 Assessment Billing - RHIANNA-7 Assessment Tool: RHIANNA-7 Assessment 24101 ([id number]) PHQ-9 - 14067 - PHQ-9 Billing: Yes ([id number]) Assessment & Plan Assessment & Plan (1) Obesity (BMI 30-39.9): Code(s): E66.9 - Obesity, unspecified Category: Medical Plan: continue with diet and exercise advanced Wegovy to the next dose. (2) Raynaud disease: Code(s): I73.00 - Raynaud's syndrome without gangrene Category: Medical Plan: discussion on keeping warm on exposed extremities (3) Diverticular disease: Code(s): K57.90 - Diverticulosis of intestine, part unspecified, without perforation or abscess without bleeding Category: Medical Plan: discussed about preventing /avoiding constipation keeping well hydrated, more fiber in the diet and keep active Plan The patient is a 54-year-old female presenting with follow-up care for obesity management and gastrointestinal conditions. Her medical history includes significant obesity and osteoarthritis, currently managed with a regimen of semaglutide (1 mg), with plans to escalate to 1.7 mg. She aims for an additional weight loss of 20 to 25 pounds to address concerns about loose skin in consultation with a plastic surgeon. The patient underwent a colonoscopy on October 11, which identified no polyps but revealed moderate diverticulitis, diverticulosis, and hemorrhoids. The diverticulosis presents as outpouchings in her intestines, with constipation as a potential exacerbating factor. The patient has responded by adopting a high- fiber diet and increasing her water consumption. She also experiences Raynaud?s phenomenon, with her fingers turning white and blue in response to cold, which she controls by keeping them warm. Medications: Changed From semaglutide (weight loss) administer weeks 1 through 4 of therapy 1 mg (0.5 mL) subcut QWEEK 1 month 2.5 mL 4RF E66.01 - Morbid (severe) obesity due to excess calories To semaglutide (weight loss) administer weeks 1 through 4 of therapy 1.7 mg (0.75 mL) subcut QWEEK 1 month 3.75 mL 4RF E66.01 - Morbid (severe) obesity due to excess calories
--- OUTSIDE RECORDS SUMMARY | 2024-12-09 16:38 | XMS_ITS ---
Author Organization 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 Name Role Phone Jose DBatoolmercy Primary Care Provider Unavailabl e Black, Anjali Unavailable [phone] Allergies Allergen (clinical drug ingredient) Drug/Non Drug Allergy documented on EMR Reaction Allergy Type Onset Date Status Adhesive Unknown Allergy Active Results Component Value Reference Range Notes X ray : Foot, right 3V Reviewed date:08/06/2024 04:26:53 PM Interpretation:See Examination above Performing Lab: Notes/Report: See Examination above REASON FOR VISIT pcp-05/2024, Foot pain, Painful Toe(s) Medications Medication SIG (Take, Route, Fr equency, Duration) Notes Start Date End Date Status Wegovy 0.5 MG/0.5ML 0.5 mL Subcutaneous Active Social History Tobacco Use: Social History Observation Description Date Details (start date - stop date) Never Smoker NA - NA Tobacco Use/Smoking Question Answer Notes Are you a: nonsmoker Additional Findings: Tobacco Non-User Current no n-smoker Tobacco use other than smoking: Question Answer Notes Are you an other tobacco user? No AUDIT-C (Standard) Question Answer Notes Did you have a drink contain ing alcohol in the past year? Yes How often did you have six o r more drinks on one occasion in the past year? Less than monthly (1 point) How many drinks did you have on a typical day when you were drinking in the past year? 1 or 2 drinks (0 point) How often did you have a dri nk containing alcohol in the past year? 2 to 4 times a month (2 points) Points 3 Interpretation Positive Problems Problem Type SNOMED Code ICD Code Onset Dates Problem Status W/U Status Risk Notes Problem Acquired hallux valgus (87587969) Hallux valgus (acquired), right foot (M20.11) Active confirmed Problem Acquired hammer toe of right foot (9490984145309258) Other hammer toe(s) (acquired), right foot (M20.41) Active confirmed Problem Localized, primary osteoarthritis of the ankle and/or foot (525334688) Arthritis of joint of lesser toe, right (M19.071) Active confirmed Vital Signs Height 5ft 9in in 08/06/2024 Weight 249 lbs 08/06/2024 BMI 36.77 kg/m2 08/06/2024 Blood pressure systolic 108 mm Hg 08/06/20 24 Blood pressure diastolic 60 mm Hg 024 Encounters Encounter Location Date Provider Diagnosis [facility] [address] 08/06/2024 Anjali Black Pain in right foot M 79.671 ; Hallux valgus (acquired), right foot M20.11 ; Pain in right ankle and joints of right foot M25.571 ; Bursitis of right foot M77.51 ; Pain in right toe(s) M79.674 ; Other hammer toe(s) (acquired), right foot M20.41 ; Arthritis of joint of lesser toe, right M19.071 ; Subluxation of metatarsophalangeal joint of toe, initial encounter S93.149A and Metatarsalgia of right foot M77.41 Assessments Encounter Date Diagnosis (ICD Code) Assessment Notes Treatment Notes Treatment Clinical Notes Section Notes 08/06/2024 Pain in right foot (ICD-10 - M79.671) 08/06/2024 Hallux valgus (acquired), right foot (ICD-10 - M20.11) 08/06/2024 Pain in right ankle and joints of right foot (ICD-10 - M25.571) 08/06/2024 Bursitis of right fo ot (ICD-10 - M77.51) 08/06/2024 Pain in right toe(s) (ICD-10 - M79.674) 08/06/2024 Other hammer toe(s) (acquired), right foot (ICD-10 - M20.41) 08/06/2024 Arthritis of joint o f lesser toe, right (ICD-10 - M19.071) 08/06/2024 Subluxation of metatarsophalangeal joint of toe, initial encounter (ICD-10 - S93.149A) 08/06/2024 Metatarsalgia of rig ht foot (ICD-10 - M77.41) Plan Of Treatment Next Appt Details Follow Up: prn, Reason: Progress Notes * CHARLESSUNILYudelkaDelvinreinaDOB:1969 (54 yo F)Acc No.[id number]:08/06/2024 Progress Notes Patient:?Kirstie WADSWORTH Provider:?Anjali Watson DPM :1970???Age:54 Y???Sex:Female D ate:08/06/2024 Address:[address] [place], [place] [id number] Pcp:Shahram Jeffery Subjective: * Chief Complaints: * ???Pcp-05/2024Foot painPainf ul Toe(s) * HPI: ???Foot Pain:?Location:?Inside, Great toe joint, RIGHT.?Duration:?, several years.?Course:?worse.?Aggravated:?any pressure.?Treatments:?rest/alter normal daily activity.?Toe pain:?Nature:?tenderness.?Location:?Right foot, 2nd toe, 3rd toe.?Duration:?, several years.?Course:?worse.?Aggravated by:?any pressure, shoes.?Treatments:?rest/alter normal daily activity, change in shoes.? * ROS:?General/Constitutional:?Nausea?denies.?Vomiting?denies.?Hunger Thirst?denies.?Loss appetite?denies.?Chills?denies.?Fatigue?denies.?Fever?denies.?Night Sweats?denies.?Unexplained weight loss?denies.?Unexplained weight gain?denies.?HEENTM:?Dentures?denies.?Dizziness?denies.?Glasses/contacts?denies.?Retinopathy?de nies.?Blurred/double vision?denies.?TMJ?denies.?Discharge/drainage?denies.?Implants?denies.?Sore throat?denies.?Dental implants?denies.?Hard of hearing ?denies.?Difficulty chewing/swallowing/speaking?denies.?Nose bleeds?denies.?Sore mouth?denies.?Respiratory:?On Oxygen?denies.?Pneumonia/pleurisy?denies.?Bronchitis?denies.?Emphysema?denies.?C oughing?denies.?Cough blood?denies.?Shortness of breath?denies.?Wheezing?denies.?Cardiovascular:?Pacemaker?denies.?MVP?denies.?WPW?denies.?CHF?denies.?Heart attack?denies.?Septal defect?denies.?Rapid beat?denies.?Chest pain ?denies.?Atrial Fib.?denies.?Murmur/Palpitations?denies.?Gastrointestinal:?Hemorrhoids?denies.?Stomach/Abdominal pain?denies.?Dark blood stool?denies.?Irritable bowel ?denies.?Constipation?denies.?Diarrhea?denies.?Hematology:?Swelling?denies.?Clots?denies.?Varicose Veins?denies.?Bruising?denies.?Bleeding problem?denies.?Genitourinary:?Blood urine?denies.?Frequent/Painfu/urination/bladder control?denies.?Kidney stones?denies.?Infection (UTI)?denies.?Nephropathy?denies.?sex trans dis (STD)?denies.?Prostate?denies.?Musculoskeletal:?Hammertoes?admits.?Bunions?admits.?Back Pain?denies.?Muscle Cramps/ Resting?denies.?Muscle cramps / walking?admits.?Generalized aches and pains?denies.?Weakness?denies.?Integ.:?Sim?denies.?Scars?denies.?Corns/calluses?denies.?Ingrown nails?denies.?Painful nails?denies.?Open Sores?denies.?Rashes?denies.?Neurologic:?Difficulty sleeping?denies.?Brain disorder?denies.?Numbness?denies.?Balance trouble?denies.?Confusion?denies.?Fainting/blackouts?denies.?Tingling?denies.?Tr emors?denies.? * Medical History:? * Surgical History:?knee surge ry ack surgery 10/1999C-Section 10/2004 * Hospitalization/Major Diagno stic Procedure:?Denies Past Hospitalization * Family History:?Mother: dece ased, diagnosed with Other malignant neoplasm of unspecified site, Diabetic - NIDDM, Unspecified essential hypertension, Family history of arthritis.?Father: alive, diagnosed with Diabetic - NIDDM, Unspecified essential hypertension, Unspecified heart disease, Other specified conditions influencing health status.?Maternal aunt: diagnosed with Family history of arthritis.? * Social History:?Tobacco Use:?Tobacco Use/Smoking?Are you a:?nonsmoker ?Additional Findings: Tobacco Non-User?Current non-smoker ?Tobacco use other than smoking?Are you an other tobacco user??No ???Drugs/Alcohol:?Drugs?Have you used drugs other than those for medical reasons in the past 12 months??No ???Miscellaneous:?Caffeine: yes, frequency:, 1-2 cups per day. ?Children: yes, 2. ?Marital status: . 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 ???Drug/Alcohol:?AUDIT-C (Standard)?Did you have a drink containing alcohol in the past year??Yes ?How often did you have six or more drinks on one occasion in the past year??Less than monthly (1 point) ?How many drinks did you have on a typical day when you were drinking in the past year??1 or 2 drinks (0 point) ?How often did you have a drink containing alcohol in the past year??2 to 4 times a month (2 points) ?Points?3 ?Interpretation?Positive * Medications:?TakingWegovy 0. 5 MG/0.5ML Solution Auto-injector 0.5 mL Subcutaneous Medication List reviewed and reconciled with the patientTaking Wegovy 0.5 MG/0.5ML Solution Auto-injector 0.5 mL Subcutaneous Medication List reviewed and reconciled with the patient * Allergies:?Adhesiveyes[Aller gies Verified] Objective: * Vitals:?Ht: 5ft 9in, Wt:249, BMI:36.77, Shoe size: 8.5W, BP:108/60mm Hg, Ht-cm: 175.26 cm, Wt-k.94 kg. * Examination: ???General Examination: ?GENERAL APPEARANCE:?Reveals a pleasant, alert, well nourished, well- developed, well hydrated individual, who demonstrates proper attention to hygiene/body habitus, and is in no acute distress, Pt serves as own historian for office visit today.?ORIENTED:?person, place, and time.?Orthopedic: ?MUSCLE STRENGTH:?5/5 all groups in a symmetrical fashion, B/L.?GAIT ABNORMALITY:?Pronated, B/L.?FOOT MORPHOLOGY:?Splayfoot weight-bearing.?BUNION:? Medially prominent 1st MPJ,(+) Pain on palpation,inflammation present medially,,Lateral tracking 1st MPJ nonreducible,RIGHT, erythema at exostosis.?DIGITAL DEFORMITIES:?Digital contracture, PIPJ/DIPJ , 2-5 B/L, incompl-reducible with WB, or to push-up test, no over, nor underlapping, Reveals pain/swelling/redness/enlargement of PIPJ, T6.?MPJ PATHOLOGY:?Plantarflexed MT/MPJ, 2nd, 3rd, Pain, swelling, and inflammation to plantar MPJ(s), MPJ pain with ROM, 2nd right.?FOOTWEAR:? shoe gear properties exacerbate patients foot/toe deformity.?Neurological: ?SENSORY:?Neurological exam reveals intact sensorium, pain sensation normal, vibration sensation intact, pinprick sensation is normal in the lower extremities, Pt denies, anesthesia, burning, paresthesia, tingling, B/L.?TINEL'S COMPRESSION:? Negative, Saphenous nerve distribution, Right.?Vascular: ?DP PULSES(B):?3/4, B/L.?PT PULSES(B):?3/4, B/L.?CAPILLARY FILL TIME:?immediate, all digits, B/L.?TROPHIC CONDITION-TEXTURE/ELASTICITY/TURGOR/HAIR GROWTH(B):?normal, B/L.?TEMPERTURE GRADIENT(C):?normal, warm to cool, proximal to distal, B/L, B/L.?PIGMENTATION:?normal, B/L.?EDEMA(C):?absent, B/L.?Dermatologic: ?SKIN FINDINGS:?Skin exam reveals normal color, texture, elasticity, and turgor. There are no masses, nor excrescences. The interspaces are clear, B/L.?X-Rays - IMAGING REPORT: ?Clinical Indication(s):? Evaluate Biomechanical Deformity?.?Views:?AP, LAT, MO, RIGHT??Taken by trained?Podiatric Appraiser Art (TG ),.?Findings:?normal bone and soft tissue density consistent for patients age and sex?.?Foot structure:?reveals excess pronation with, anterior break in cyme line.?Digits:? show asymmetrical joint space narrowing at the PIPJ consistent with clinical finding of hammertoe deformity.?HAV:?increased First Intermetatarsal angle and Hallux Abductus angle consistent with Bunion deformity noted, hypertrophy of the dorsal and medial 1st MTH without subchondral cyst, increased 1st IM angle, increased Hallux Interphalangeus angle with asymmetrical IPJ and joint degeneration, tibial sesamoid position, 4/5, short 1st MT, Right.?Fracture:?Negative fractures identified , Negative fractures identified.? Assessment: * Assessment: 1.?Pain in right foot - M79. 671???2.?Hallux valgus (acquired), right foot - M20.11 (Primary)???3.?Pain in right ankle and joints of right foot - M25.571???4.?Bursitis of right foot - M77.51???5.?Pain in right toe(s) - M79.674???6.?Other hammer toe(s) (acquired), right foot - M20.41???7.?Arthritis of joint of lesser toe, right - M19.071???8.?Subluxation of metatarsophalangeal joint of toe, initial encounter - S93.149A???9.?Metatarsalgia of right foot - M77.41??? Plan: * Treatment: * Procedure Codes:?73140 X-RAY EXAM OF RIGHT FOOT 3V, Modifiers: 26 , RT * Preventive Medicine:? ??Counseling:?Discussion:?-04: Office or other outpatient visit for the evaluation and management of a new patient, which required a medically appropriate history and/or examination and MODERATE level of DECISION MAKING for: 1 OR MORE CHRONIC PROBLEM(S) THATS WORSENING, 2 STABLE CHRONIC PROBLEMS, A NEWLY DIAGNOSED PROBLEM WITH UNCERTAIN PROGNOSIS, AN ACUTE COMPLICATED INJURY WITH MULTIPLE TREATMENT OPTIONS, OR AN ACUTE PROBLEM WITH ACCOMPANYING SYSTEMIC SYMPTOMS, THAT POSE(S) A MODERATE RISK OF MORBIDITY. THIS CONDITION MAY ALSO INCLUDE RX DRUG MANAGEMENT, OR A DECISON FOR MINOR SURGERY. The visit on the day of the encounter encompassed interpreting the data and educating the patient as to the nature of their condition, treatment options available according to their individual PMH, meds, allergies, and overall health/living conditions, as well as any potential risks or complications that may occur from a failure to adhere to, and participate in, the recommended course of therapy. The discussion included a complete verbal, and/or written explanation of the examination results, any x-rays taken, the proposed diagnosis, and outline of the treatment plan. A schedule for future care needs was also explained. The patient verbalized an understanding of the instructions at this time and agreed to be an active participant in their treatment. If the patient should think of any questions or concerns after the visit, I have encouraged the patient to call the office.?BioMech.:?Discussed and reviewed the X-rays with the patient. We discussed how the findings relate to the patients symptoms/complaints. Answered any and all questions., I discussed the Pts foot biomechanics with them and how it relates to their problem, Recommended Topical analgesics including biofreeze/aspercream/Voltaren gel.?Digital Surgery:?Digital surgery was discussed with the patient, including the risks of surgery(below), vs not having surgery (persistent pain, deformity, risk for skin ulceration/infection, loss of toe), the potential surg complications, the anesthesia, and the usual post-op course. No guarentees were given. We discussed the potential procedure complications including, but not limited to: pain, swelling, bleeding, scarring, numbness, infection, delayed/non healing, floppy/unstable/shorthened toe, recurrence, failure of the procedure, overcorrection leading to plantarflexed/downward positioned toe, recurrence, need for further surgery, as well as the possibility for loss of the toe itself. We discussed the use of local anesthesia, and the usual post-op course for healing. No guarentees were given. The patient verbally indicated a full understanding of the above conversation, and any other of their questions were answered to their satisfaction. Alternatives to the procedure were also discussed, including conservative care. I also discussed the usual post-operative course and gave no guarantees regarding outcome, I discussed surgery for a claw toe/hammertoe by arthrodesis @ PIPJ and arthroplasty at DIPJ with use of internal fixation.?Digital Treatment:?HV - I explained to the patient the risks/benefits of all the different treatment options for their pain including: No treatment at all, Rest, Ice, New/supportive/wider/deeper Shoegear, Digital Padding/Strapping/Taping/Bracing/Gel protective sleeves, Foot/Ankle AFO Bracing, Stretching exercises, Deep Tissue Massage, Arch support/shoe inserts with splay metatarsal padding, and Custom orthoses. I insisted that any digital devices be removed daily and not worn overnight for safety. The patient is to carefully examine the toes daily for any skin irritation while using any splinting or padding device. The advantages and disadvantages of each option were discussed and the patients questions re: shoegear, padding, custom vs prefabricated inserts, activity level, and consistency in home treatment regimens for optimal success were answered to their verbally confirmed satisfaction, Recomm, rest, ice, proper shoegear, padding, orthotics, anti-inflammatories or tylenol as tolerated, topical analgesics, cortisone injections, HT- I explained to the patient the possible etiologies of Hammertoes, including genetics/foot type/shoegear/activity level/exercise routine and the risks/benefits of all the different treatment options for their pain including: No treatment at all, Rest, Ice, New/supportive/wider/deeper Shoegear, Digital Padding/Strapping/Taping/Bracing/Gel protective sleeves, Foot/Ankle AFO Bracing, Stretching exercises, Deep Tissue Massage, Arch support/shoe inserts with splay metatarsal padding, and Custom orthoses. I insisted that any digital devices be removed daily and not worn overnight for safety. The patient is to carefully examine the toes daily for any skin irritation while using any splinting or padding device. The advantages and disadvantages of each option were discussed and the patients questions re: shoegear, padding, custom vs prefabricated inserts, activity level, and consistency in home treatment regimens for optimal success were answered to their verbally confirmed satisfaction.?Discussion for Bunion sx:?Several different types of Bunion surgeries were discussed with the patient, including, but not limited to: Modified Ferraro bone removal and soft tissue release/realignment, Gregor osteotomy with soft tissue release/realignment and internal fixation, Shaft v Base wedge osteotomies with internal fixation, and Lapidus joint fusion procedures with internal fixation. We discussed the risks of having surgery (described below) vs not having surgery (persistent pain, deformity, risk for skin ulceration/infection, loss of toe) as well as the potential surgical complications including, but not limited to: pain, swelling, bleeding, scarring, numbness, infection, delayed/non healing, floppy/unstable/shorthened toe, recurrence, failure of the procedure, overcorrection leading to plantarflexed/downward/upward positioned toe, recurrence, need for further surgery, as well as the possibility for loss of the toe itself. We discussed the use of IV/Local regional anesthesia, and the usual post-op course for healing. No guarentees were given. The patient verbally indicated a full understanding of the above conversation, and any other of their questions were answered to their satisfaction, Discussed and reviewed the X-rays with the patient. We discussed how the findings relate to the patients symptoms/complaints. Answered any and all questions..?Shoe Gear Counseling:?The patient and I reviewed the types of shoes they should be wearing. My recommendation included obtaining a well-fitted shoe with a good supportive, non-foldable nor twistable sole, plenty of toe/room for the forefoot, and proper arch support. Based on todays examination, I recommended the patient look for new shoes, by having their feet professionally measured. We discussed that generally the best time of the day for a shoe fitting is the afternoon. Different shoes types and brands to best match the patients occupation and vocation were discussed. Specific brand selection will be up to the patient, their individual foot condition/deformities, and fit. The patient and I reviewed the standard new shoe break in period by wearing them for a few hours a day while checking for redness or sores as wear time is increased. The patient verbally confirmed to understanding the information discussed.? * Follow Up:?prn * Images: * Sign off status: Completed true * Provider:?Anjali Watson DPM Date:?2023 Generated for José Miguel chase/Zi/Herann on:?12/09/2024 04:37 PM EDT History and Physical Notes * HPI (History of Present Illness) Category Sub-Category Detail Notes Category Not es Toe pain Nature: tenderness Location: Right foot, 2nd toe, 3rd toe Duration: , several years Course: worse Aggravated by: any pressure, shoes Treatments: rest/alter normal da marissa activity, change in shoes Foot Pain Location: Inside, Great toe joint, RIG HT Duration: , several years Course: worse Aggravated: any pressure Treatments: rest/alter normal da marissa activity Examination Category Sub-Category Detail Notes Category Not es Neurological SENSORY: Neurological exa m reveals intact sensorium, pain sensation normal, vibration sensation intact, pinprick sensation is normal in the lower extremities, Pt denies, anesthesia, burning, paresthesia, tingling, B/L TINEL'S COMPRESSION: Negative, Saphenous nerve distribution, Right Dermatologic SKIN FINDINGS: Skin exam reveal s normal color, texture, elasticity, and turgor. There are no masses, nor excrescences. The interspaces are clear, B/L Orthopedic GAIT ABNORMALITY: Pronated, B/L FOOT MORPHOLOGY: Splayfoot weight-ana paula ring BUNION: Medially prominent 1 st MPJ, (+) Pain on palpation, inflammation present medially,,Lateral tracking 1st MPJ nonreducible,RIGHT, erythema at exostosis FOOTWEAR EVALUATION: shoe gear propertie s exacerbate patients foot/toe deformity DIGITAL DEFORMITIES: Digital contracture , PIPJ/DIPJ , 2-5 B/L, incompl-reducible with WB, or to push-up test, no over, nor underlapping, Reveals pain/swelling/redness/enlargement of PIPJ, T6 MPJ PATHOLOGY: Plantarflexed MT/MPJ , 2nd, 3rd, Pain, swelling, and inflammation to plantar MPJ(s), MPJ pain with ROM, 2nd right MUSCLE STRENGTH: 5/5 all groups in a symmetrical fashion, B/L General Examination GENERAL APPEARANCE: Reveals a pleasant, alert, well nourished, well-developed, well hydrated individual, who demonstrates proper attention to hygiene/body habitus, and is in no acute distress, Pt serves as own historian for office visit today ORIENTED: person, place, and t mario Vascular DP PULSES (B): 3/4, B/L PT PULSES (B): 3/4, B/L CAPILLARY FILL TIME: immediate, all digi ts, B/L TEMPERTURE GRADIENT (C): normal, warm to cool, proximal to distal, B/L, B/L TROPHIC CONDITION-TEXTURE/ELASTICITY/TURGOR/HAIR GROWTH (B): normal, B/L EDEMA (C): absent, B/L PIGMENTATION: normal, B/L X-Rays - IMAGING REPORT Findings: normal b one and soft tissue density consistent for patients age and sex Fracture: Negative fractures i dentified , Negative fractures identified Digits: show asymmetrical jeannie int space narrowing at the PIPJ consistent with clinical finding of hammertoe deformity Foot structure: reveals excess prona tion with, anterior break in cyme line HAV: increased First Inte rmetatarsal angle and Hallux Abductus angle consistent with Bunion deformity noted, hypertrophy of the dorsal and medial 1st MTH without subchondral cyst, increased 1st IM angle, increased Hallux Interphalangeus angle with asymmetrical IPJ and joint degeneration, tibial sesamoid position, 4/5, short 1st MT, Right Views: AP, LAT, MO, RIGHT T aken by trained Podiatric Appraiser Art (TG ) , Clinical Indication(s): Evaluate Biomech anical Deformity
--- OUTSIDE RECORDS SUMMARY | 2024-12-09 16:38 | XMS_ITS ---
Author Organization [facility] radha Saxe Address [address] [place] [address] Care Team Providers Care Paper Steamer Name Role Phone Shahram Jeffery Primary Care Provider Joanna e Anjali Watson Unavailable [phone] Allergies Allergen (clinical drug ingredient) Drug/Non Drug [...] 05/01/2024 Encounters Encounter Location Date Provider Diagnosis [address] [place] [address] 05/01/2024 Anjali Watson Plan Of Treatment No Information Progress Notes * Kirstie WADSWORTHDOB:1969 (54 yo F)Acc No.[id number]:05/01/2024 Progress Notes Patient:?Kirstie WADSWORTH Provider:?Anjali Watson DPM :1970???Age:53 Y???Sex:Female D ate:05/01/2024 Address:[address] [facility], [id number] Pcp:Shahram Jeffery Subjective: * Chief Complaints: * ??? * ROS:?General/Constitutional:?Nausea?denies.?Vomiting?denies.?Hunger Thirst?denies.?Loss appetite?denies.?Chills?denies.?Fatigue?denies.?Fever?denies.?Night Sweats?denies.?Unexplained weight loss?denies.?Unexplained weight gain?denies.?HEENTM:?Dentures?denies.?Dizziness?denies.?Glasses/contacts?denies.?Retinopathy?de nies.?Blurred/double vision?denies.?TMJ?denies.?Discharge/drainage?denies.?Implants?denies.?Sore throat?denies.?Dental implants?denies.?Hard of hearing ?denies.?Difficulty chewing/swallowing/speaking?denies.?Nose bleeds?denies.?Sore mouth?denies.?Respiratory:?On Oxygen?denies.?Pneumonia/pleurisy?denies.?Bronchitis?denies.?Emphysema?denies.?C oughing?denies.?Cough blood?denies.?Shortness of breath?denies.?Wheezing?denies.?Cardiovascular:?Pacemaker?denies.?MVP?denies.?WPW?denies.?CHF?denies.?Heart attack?denies.?Septal defect?denies.?Rapid beat?denies.?Chest pain ?denies.?Atrial Fib.?denies.?Murmur/Palpitations?denies.?Gastrointestinal:?Hemorrhoids?denies.?Stomach/Abdominal pain?denies.?Dark blood stool?denies.?Irritable bowel ?denies.?Constipation?denies.?Diarrhea?denies.?Hematology:?Swelling?denies.?Clots?denies.?Varicose Veins?denies.?Bruising?denies.?Bleeding problem?denies.?Genitourinary:?Blood urine?denies.?Frequent/Painfu/urination/bladder control?denies.?Kidney stones?denies.?Infection (UTI)?denies.?Nephropathy?denies.?sex trans dis (STD)?denies.?Prostate?denies.?Musculoskeletal:?Hammertoes?admits.?Bunions?admits.?Back Pain?denies.?Muscle Cramps/ Resting?denies.?Muscle cramps / walking?admits.?Generalized aches and pains?denies.?Weakness?denies.?Integ.:?Sim?denies.?Scars?denies.?Corns/calluses?denies.?Ingrown nails?denies.?Painful nails?denies.?Open Sores?denies.?Rashes?denies.?Neurologic:?Difficulty sleeping?denies.?Brain disorder?denies.?Numbness?denies.?Balance trouble?denies.?Confusion?denies.?Fainting/blackouts?denies.?Tingling?denies.?Tr emors?denies.? 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 * Surgical History:?knee surge ry 12/2009, back surgery 10/1999, 10/2004. * Family History:?Mother: dece ased, diagnosed with Family history of arthritis, Diabetic - NIDDM, Unspecified essential hypertension, Other malignant neoplasm of unspecified site.?Father: alive, diagnosed with Diabetic - NIDDM, Unspecified essential hypertension, Unspecified heart disease, Other specified conditions influencing health status.?Maternal aunt: diagnosed with Family history of arthritis.? * Social History:?Tobacco Use:?Tobacco Use/Smoking?Are you a:?nonsmoker ?Additional Findings: Tobacco Non-User?Current non-smoker ?Tobacco use other than smoking?Are you an other tobacco user??No ???Drugs/Alcohol:?Drugs?Have you used drugs other than those for medical reasons in the past 12 months??No ?Alcohol Screen?Did you have a drink containing alcohol in the past year??Yes ?Points?0 ?Interpretation?Negative ???Miscellaneous:?Caffeine: yes, 2-3 cups per day. ?Children: yes, 2. ?Exercise: yes, travel, swimming, walking. ?Marital status: . 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 * Medications:?Taking Wegovy 0 .5 MG/0.5ML Solution Auto-injector 0.5 mL Subcutaneous * Allergies:?Adhesive. Objective: * Vitals:?Ht: 5 ft 9 in, Wt:26 0, BMI:38.39, Shoe size: 8.5 W, Ht-cm: 175.26 cm, Wt-k.93 kg. Assessment: Plan: * Treatment: * Images: * The named appointment provid er may or may not be the originator of this progress note, and it is not deemed complete until electronically signed by the appointment provider. Sign off status: Pending * Provider:?Anjali Watson DPM Date:?2023 Generated for José Miguel chase/Zi/Hernan on:?12/09/2024 04:38 PM EDT
--- OUTSIDE RECORDS SUMMARY | 2024-12-09 16:38 | XMS_ITS ---
Author Organization [facility] Address [address] [place] [address] Care Team Providers Care Automotive Design Drafter Name Role Phone Shahram Jeffery Primary Care Provider Unavailabl e Black, Anjali Unavailable [phone] REASON FOR VISIT NS today Encounters Encounter Location Date Provider Diagnosis [address] [address] 05/01/2024 Anjali Black Plan Of Treatment No Information Progress Notes * STEPHANIEKirstie FORDEDOB:1969 (53 yo F)Acc No.[id number]:05/01/2024 Patient:?Kirstie Lao :1970???Age:53 Y???Sex:Female Address:[address] [place] [address], [address] * true * Date:? Generated for José Miguel chase/Zi/eTransmitting on:?12/09/2024 04:38 PM EDT
--- OUTSIDE RECORDS SUMMARY | 2024-12-09 16:38 | XMS_ITS | Patient Health Record ---
Author Organization [facility] Address [address] [place] [address] Care Team Providers Care Mine Safety Engineer Name Role Phone Shahram Jeffery Primary Care Provider Unavailabl e Black, Anjali Unavailable [phone] Allergies Allergen (clinical drug ingredient) Drug/Non Drug Allergy documented on EMR Reaction Allergy Type Onset Date Status Adhesive Unknown Allergy Active Results Component Value Reference Range Notes X ray : Foot, right 3V Reviewed date:08/06/2024 04:26:53 PM Interpretation:See Examination above Performing Lab: Notes/Report: See Examination above Reason For Referral No Information Medications Medication SIG (Take, Route, Fr equency, [...] Status Risk Notes Problem Acquired hallux valgus (70587862) Hallux valgus (acquired), right foot (M20.11) Active confirmed Problem Acquired hammer toe of right foot (2658846900931802) Other hammer toe(s) (acquired), right foot (M20.41) Active confirmed Problem Localized, primary osteoarthritis of the ankle and/or foot (495515762) Arthritis of joint of lesser toe, right (M19.071) Active confirmed Vital Signs Blood pressure diastolic 60 mm Hg 08/06/2024 Height 5ft 9in in 08/06/2024 Blood pressure systolic 108 mm Hg 08/06/2024 Weight 249 lbs 08/06/2024 BMI 36.77 kg/m2 08/06/2024 Encounters Encounter Location Date Provider Diagnosis [address] [address] 08/06/2024 Anjalicristina Watson Pain in right foot M 79.671 ; [...] S93.149A and Metatarsalgia of right foot M77.[address] [address] 04/17/2024 [facility] [address] [place] [address] [facility]/29/20[facility] [address] 05/01/2024 Anjali Watson Assessments Encounter Date Diagnosis (ICD Code) Assessment [...] foot (ICD-10 - M77.41) Plan Of Treatment No Information Insurance Providers Payer Name Payer Address Payer Phone Subscriber Number Group Number Insured Name Patient Relationship to Insured Coverage Start Date Coverage End Date [facility]) [address] [place] [address] [id number] [facility] Kirstie Lao Self - patient is the insured Medical (General) History Medical History History ICD Code Broken bones 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
== END 2024-12-09 15:29 | disposition home or self-care (01) ==
LOC: HO.HMCH 14:43
PROVIDERS: PCP Internal Medicine; Visit Provider Internal Medicine
DX: I73.00 Raynaud's syndrome without gangrene (principal); E66.9 Obesity, unspecified; K57.90 Diverticulosis of intestine, part unspecified, without perforation or abscess without bleeding; Z68.35 Body mass index [BMI] 35.0-35.9, adult

== ENCOUNTER → 2024-12-09 14:42 | Outpatient (BNVA) | payer OTHER, SELFPAY | PROVIDERS: PCP Internal Medicine; Visit Provider Internal Medicine | DX: E66.9 Obesity, unspecified (principal); Z68.35 Body mass index [BMI] 35.0-35.9, adult; I73.00 Raynaud's syndrome without gangrene; K57.90 Diverticulosis of intestine, part unspecified, without perforation or abscess without bleeding | CPT/HCPCS: 96127 ==

== ENCOUNTER 2025-01-17 10:11 | Outpatient (AMB) | payer OTHER, SELFPAY ==
[2025-01-17 10:15] VITALS: BP 118/78; PULSE 79; O2SAT 98; BMI 33.8
--- NOTE | 2025-01-17 10:15 | MHC.PC.OV ---
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 Daughter No problems noted. Family/Other Colon cancer Mother Lung cancer Social History Housing: House Are you a primary primary care sales representative to a significant other at home: No Do you presently have visiting nurse or other home services: No Alcohol intake: current Alcohol intake frequency: a few times a month Comment: once a week 1 drink Patient Tobacco Use Status: Never used Tobacco Tobacco use type: Cigarette e-Cigarette/Vaping Use: Never Used Second Hand Smoke Exposure: No service: No Current occupational status: employed Cognitive needs: No Hearing needs: No Vision needs: Yes Questionnaire PHQ-9 Over the last 2 weeks, how often have you been bothered by any of the following problems? 1. Little interest or pleasure in doing things: not at all 2. Feeling down, depressed, or hopeless: not at all 3. Trouble falling or staying asleep, or sleeping too much: not at all 4. Feeling tired or having little energy: not at all 5. Poor appetite or overeating: not at all 6. Feeling bad about yourself - or that you are a failure or have let yourself or your family down: not at all 7. Trouble concentrating on things, such as reading the newspaper or watching television: not at all 8. Moving or speaking so slowly that other people could have noticed. Or the opposite - being so fidgety or restless that you have been moving around a lot more than usual: not at all 9. Thoughts that you would be better off or of hurting yourself in some way: not at all Total score: 0 Depression Screening Interpretation: Negative Depression Screening Done: Yes 36448 - PHQ-9 Billing: Yes Source: Developed by Drs. Sanjiv Conley, Gabby Peterson, Jair Restrepo and colleagues, with an educational melissa from [employer]. Thrive Questionnaire Date Thrive assessed: 12/09/24 I am a: Patient What is your living situation today?: I have a steady place to live Within the past 12 months, did the food you bought not last and you didn't have the money to get more?: Never true Within the past 12 months, did you worry whether your food would run out before you got money to buy more?: Never true Do you have trouble paying for medicines?: No Do you have trouble getting transportation to medical appointments?: No Do you have trouble paying your heating and electricity bill?: No Do you have trouble taking care of your child, family member or friend?: No Do you have trouble with day-to-day activities such as bathing, preparing meals, shopping, managing finances, etc.?: No Are you currently unemployed and looking for a job?: No Are you interested in more education?: No Please select the resources that you would like help with: None Currently or been in a relationship where the following occur: No concerns reported THRIVE Score: 0 AUDIT C Alcohol Use Questionnaire (AUDIT-C) 1. How often do you have a drink containing alcohol?: 2-4 times a month Total Score: 2 RHIANNA-7 AMB Questionnaire RHIANNA-7 Date RHIANNA - 7 assessed: 12/09/24 Feeling nervous, anxious, or on edge: 0 = Not at all Not being able to stop or control worryin = Not at all Worrying too much about different things: 0 = Not at all Trouble relaxin = Not at all Being so restless that it is hard to sit still: 0 = Not at all Becoming easily annoyed or irritable: 0 = Not at all Feeling afraid as if something awful might happen: 0 = Not at all Total RHIANNA-7 score (0-4 normal; 5-9 mild; 10-14 moderate; 15-21 severe): 0 Source: Developed by Drs. Sanjiv Conley, Gabby Peterson, Jair Restrepo and colleagues, with an educational melissa from [employer]. RHIANNA-7 Assessment Billing RHIANNA-7 Assessment Tool: RHIANNA-7 Assessment 63586 Review of Systems Const Denies poor appetite and Denies weakness Eyes Denies no additional complaints ENT Reports Normal hearing present, Denies dizziness, Denies nasal congestion, Denies tinnitus and Denies sore throat Card Denies chest pain, Denies syncope, Denies rapid heart rate and Denies dyspnea Resp Denies cough and Denies dyspnea GI Denies change in stool character, Reports constipation, Denies diarrhea, Denies nausea and Denies vomiting Denies urinary frequency, Denies difficulty voiding and Denies dysuria Neuro Reports Normal hearing present, Denies confusion, Denies dizziness, Denies syncope and Denies weakness Psych Denies confusion Physical exam (Primary Care) Vital Signs: Last Vital Signs Pulse 79 01/17/25 10:15 BP 118/78 01/17/25 10:15 Pulse Ox 98 01/17/25 10:15 Oxygen Delivery Method Room Air 01/17/25 10:15 BMI result Body Mass Index 33.8 Tobacco/Smoking Status: Tobacco use Status Tobacco use date assessed 12/09/24 01/17/25 10:17 Patient Tobacco Use Status Never used Tobacco 01/17/25 10:17 Tobacco use type Cigarette 01/17/25 10:17 e-Cigarette/Vaping Use Never Used 01/17/25 10:17 PHQ-9: PHQ-9 Score PHQ-9: Total score 0 01/17/25 10:34 Depression Screening Interpretation: Negative Thrive Assessment: Date of Thrive Assessment Date Thrive assessed 12/09/24 01/17/25 10:17 Currently or been in a relationship where the following occur: No concerns reported Const General: No confusion Orientation/consciousness: No confusion HENMT Head: Yes normocephalic Ears: external ears normal and TM's normal bilaterally Face and sinus: Yes normal facial exam Mouth: moist mucous membranes Throat: Yes tonsils normal Eyes Conjunctivae: conjunctivae normal Pupils: Equal, round and reactive pupils present and Pupil accommodation reflex normal Direct Ophthalmoscopy: normal light reflex Neck Neck: No lymphadenopathy Thyroid: Thyroid normal Chest Chest palpation & inspection: normal inspection of the chest Resp Effort & Inspection: normal respiratory effort and no audible wheezes Auscultation: clear to auscultation bilaterally, no crackles, no wheezes and lung sounds not diminished Cardio Rate: regular rate Rhythm: regular rhythm Peripheral pulses: radial pulses present and dorsalis pedis present GI Palpation (GI): no masses Auscultation: normal bowel sounds and normoactive bowel sounds Rectal Exam - Female: deferred Skin General skin exam: no rashes or lesions noted Rashes: no rashes Neuro General: No confusion Cranial nerves: Yes Equal, round and reactive pupils present and Yes Normal hearing present Cognition (Neuro): normal cognition Gait exam (Neuro): Normal gait present Motor exam (neuro): 5/5 motor strength present throughout Deep tendon reflexes (DTR's): Right brachioradialis reflex intensity grade: 2+, Left brachioradialis reflex intensity grade: 2+, Right patellar reflex intensity grade: 2+ and Left patellar reflex intensity grade: 2+ Extrem General: No edema Coding Level of Care Code Est Pt Prev Care 40-64y(12777) Diagnoses Annual physical exam Z00. Obesity (BMI 30-39.9) E66.9 Breast cancer screening by mammogram Z. Raynaud disease I73.00 Additional Codes RHIANNA-7 Assessment Billing - RHIANNA-7 Assessment Tool: RHIANNA-7 Assessment 22273 ([id number]) PHQ-9 - 52339 - PHQ-9 Billing: Yes ([id number]) Assessment & Plan Assessment & Plan (1) Annual physical exam: Code(s): Z00.00 - Encounter for general adult medical examination without abnormal findings Category: Medical Plan: Patient is advised to eat healthy, keep well hydrated, keep active and have adequate sleep. (2) Obesity (BMI 30-39.9): Code(s): E66.9 - Obesity, unspecified Category: Medical Plan: Continue with diet and exercise (3) Breast cancer screening by mammogram: Code(s): Z12.31 - Encounter for screening mammogram for malignant neoplasm of breast Category: Medical Plan: Patient is reminded about mammogram (4) Raynaud disease: Code(s): I73.00 - Raynaud's syndrome without gangrene Category: Medical Plan: Keep extremities warm Plan History of Present Illness The patient is a 54-year-old female presenting for an annual physical examination with a background of obesity, osteoarthritis, Raynaud's Phenomenon, and diverticular disease. She has managed a weight reduction and is utilizing semaglutide effectively without significant side effects, noting improvements in her activity level and overall well-being. 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 She practices effective weight management and anticipates further weight loss. She is planning an abdominal procedure for May 2025 assuming stable weight maintenance. Family medical history reveals skin cancer and lung disease in her father, lung cancer in her mother, and colon cancer in a cousin. Notably, her colonoscopy is current, and she follows regular mammogram screenings. Although experiencing sporadic episodes of heartburn, she maintains a balanced lifestyle. Health Maintenance - Annual mammogram completed - Colonoscopy last conducted September 2024 - Blood work scheduled for completion, fasting required - Current diet and exercise regimen discussed - Continued monitoring of mammogram results - Promotion of heart disease prevention through weight management and increased physical activity - Avoidance of vaccinations pertaining to Guillain-Jefferson? Syndrome history - Planned abdominoplasty anticipated post-stable weight achievement Social History - Reports social alcohol consumption, limiting to approximately once per week - Denies any tobacco or recreational drug use - Regular physical activity with increased walking - Semaglutide use for weight management - Social support details not explicitly discussed Review of Systems - General: Reports good energy levels - Cardiovascular: Denies chest pain, palpitations, or shortness of breath - Respiratory: Denies shortness of breath - Gastrointestinal: Reports heartburn occasionally if eating late; denies nausea or vomiting - Genitourinary: No issues with urination - Musculoskeletal: Reports no new joint pain beyond known osteoarthritis - Neurological: Denies dizziness, headaches, or syncope - Dermatological: Reports skin peeling in ears, potentially related to eczema; no discoloration noted with Raynaud's; denies any skin changes elsewhere - Eyes: No vision corrections other than reading glasses, denies any significant vision changes - Psychological: No complaints or concerns noted Physical Exam General: Cooperative, healthy appearing, comfortable, no acute distress and well developed Orientation: Patient oriented x3 Limitations: No limitations Head: Normal to inspection Ears: Hearing grossly normal bilaterally, but patient reports peeling skin in ears, possibly eczema Nose: Normal external nose present Face and sinus: Normal facial exam Eyes: Appearance normal, both eyes and all related structures; patient reports vision slightly worsening, uses cheater glasses Neck: Normal visual inspection and Yes full ROM Respiratory: Normal respiratory effort and able to speak in complete sentences. Clear to auscultation bilaterally Cardiovascular: Regular rate and rhythm. Normal S1 and S2 GI: Normal to inspection. Soft to palpation and nontender; patient reports occasional heartburn when eating late Skin: No rashes or lesions noted; patient reports peeling skin in ears, possibly eczema Neuro: Patient oriented x3 Extremities: Normal to inspection; patient reports no issues with Raynaud's during winter, except fingers may discolor if extremely cold Results - Labs: Awaiting current blood work - Imaging: Awaiting mammogram results - Procedures: Colonoscopy most recent September 2024 Plan The plan includes maintaining current treatment with semaglutide, promoting weight management through physical activity, and arranging blood work to review metabolic health. Routine monitoring is necessary for her Raynaud's and osteoarthritis symptoms. Abdominoplasty is planned on stable weight achievement. Regular screenings with mammograms and colonoscopies are to be continued. Encounters related to past Guillain-Jefferson? Syndrome limit vaccination options, highlighting the importance of avoiding known exposures. Patient was informed and verbally consented to the use of an ambient scribe for clinic note documentation during this visit. Discussion Notes I spent time discussing with the patient her current weight management plan utilizing semaglutide and emphasized the importance of maintaining her current physical activity levels. We reviewed the benefits of further weight reduction, particularly regarding her planned abdominoplasty. Additionally, we discussed vaccination risks due to her Guillain-Jefferson? history, emphasizing the necessity of minimizing exposure to conditions requiring preventive vaccination. Follow-up will include results from pending blood work, continued observation of dermatological symptoms, and maintaining routine screenings as scheduled. Patient Instructions - Continue taking semaglutide 1.7 mg as prescribed - Increase daily physical activity to support weight management - Schedule and complete fasting blood work as soon as possible - Continue dietary and exercise practices for weight loss - Prepare for upcoming abdominoplasty with a stable weight goal - Stay current with mammogram screenings and monitor any breast changes - Avoid known vaccine triggers due to previous Guillain-Jefferson? Syndrome - Contact if experiencing new or worsening symptoms - Maintain hydration, particularly when managing symptoms such as heartburn
--- OUTSIDE RECORDS SUMMARY | 2025-01-17 10:40 | XMS_ITS ---
Author Organization [facility] Address [address] [place] [address] Care Team Providers Care Cook Restaurant Name Role Phone Shahram Jeffery Primary Care Provider Unavailabl e Black, Anjali Unavailable [phone] REASON FOR VISIT NS today Encounters Encounter Location Date Provider Diagnosis [address] [address] 05/01/2024 Anjali Black Plan Of Treatment No Information Progress Notes * STEPHANIEABHISHEK DelvinreinaDOB:1969 (53 yo F)Acc No.[id number]:05/01/2024 Patient:?Kirstie Lao :1970???Age:53 Y???Sex:Female Address:[address] [place] [address], [address] * true * Date:? Generated for José Miguel chase/Zi/eTransmitting on:?01/17/2025 10:40 AM EDT
--- OUTSIDE RECORDS SUMMARY | 2025-01-17 10:40 | XMS_ITS ---
Author Organization [facility] radha Lowell Address [address] [facility] [place] [address] Care Team Providers Care Histology Manager Name Role Phone Jose DBatoolmercy Primary Care Provider Unavailabl e Black, Anjali Unavailable [phone] Allergies Allergen (clinical drug ingredient) Drug/Non Drug [...] Status Risk Notes Problem Acquired hallux valgus (25650582) Hallux valgus (acquired), right foot (M20.11) Active confirmed Problem Acquired hammer toe of right foot (7029254956412534) Other hammer toe(s) (acquired), right foot (M20.41) Active confirmed Problem Localized, primary osteoarthritis of the ankle and/or foot (899898967) Arthritis of joint of lesser toe, right (M19.071) Active confirmed Vital Signs Height 5ft 9in in 08/06/2024 Weight 249 lbs 08/06/2024 BMI 36.77 kg/m2 08/06/2024 Blood pressure systolic 108 mm Hg 08/06/20 24 Blood pressure diastolic 60 mm Hg 024 Encounters Encounter Location Date Provider Diagnosis [facility] [address] 08/06/2024 Anjali Black Pain in right foot [...] Progress Notes * CHARLESSUNILYudelkaDelvinreinaDOB:1969 (54 yo F)Acc No.[id number]:08/06/2024 Progress Notes Patient:?Kirstie WADSWORTH Provider:?Anjali Watson DPM :1970???Age:54 Y???Sex:Female D ate:08/06/2024 Address:[address] [place], [place] [id number] Pcp:Shahram Jeffery Subjective: * Chief Complaints: * [...] yes, 2. ?Marital status: . 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 ???Drug/Alcohol:?AUDIT-C (Standard)?Did you have a drink [...] Biomechanical Deformity?.?Views:?AP, LAT, MO, RIGHT??Taken by trained?Podiatric Dining Car Conductor (TG ),.?Findings:?normal bone and soft tissue density [...] - M77.41??? Plan: * Treatment: * Procedure Codes:?64289 X-RAY EXAM OF RIGHT FOOT 3V, Modifiers: [...] DPM Date:?2023 Generated for José Miguel chase/Zi/Hernan on:?01/17/2025 10:40 AM EDT History and Physical Notes * HPI [...] MO, RIGHT T aken by trained Podiatric Dining Car Conductor (TG ) , Clinical Indication(s): Evaluate Biomech anical Deformity
--- OUTSIDE RECORDS SUMMARY | 2025-01-17 10:40 | XMS_ITS | Patient Health Record ---
Author Organization [facility] Address [address] [place] [address] Care Team Providers Care Domestic Violence Counselor Name Role Phone Shahram Jeffery Primary Care Provider Unavailabl e Black, Anjali Unavailable [phone] Allergies Allergen (clinical drug ingredient) Drug/Non Drug [...] Status Risk Notes Problem Acquired hallux valgus (06283104) Hallux valgus (acquired), right foot (M20.11) Active confirmed Problem Acquired hammer toe of right foot (4709372008109 105) Other hammer toe(s) (acquired), right foot (M20.41) Active confirmed Problem Arthritis of joint of lesser toe, right (M19.071) Active confirmed Vital Signs Blood pressure diastolic 60 mm Hg 08/06/2024 Height 5ft 9in in 08/06/2024 Blood pressure systolic 108 mm Hg 08/06/2024 Weight 249 lbs 08/06/2024 BMI 36.77 kg/m2 08/06/2024 Encounters Encounter Location Date Provider Diagnosis [address] [address] 08/06/2024 Anjali Watson Pain in right foot M 79.671 [...] S93.149A and Metatarsalgia of right foot M77.[address] [address] 04/17/2024 [facility] [address] [place] [address] 04/29/2024 Anjali Walter [address] [address] 05/01/2024 Anjali Watson Assessments Encounter Date Diagnosis [...] Insured Coverage Start Date Coverage End Date [facility] ([facility]) [address] [place] [address] [phone] [id number] [facility] Kirstie Lao Self - patient is the insured Medical (General) History Medical History History ICD Code Broken bones Guillain-Switchback syndrome (GBS) Transfusions Surgical History Surgery Date(Month/Year) knee surgery 12/2009 back surgery 10/1999 10/2004
--- OUTSIDE RECORDS SUMMARY | 2025-01-17 10:41 | XMS_ITS ---
Author Organization [facility] radha Eustis Address [address] [place] [address] Care Team Providers Care Bilingual Secretary Name Role Phone Shahram Jeffery Primary Care Provider Unavaillisa e Anjali Watson Unavailable [phone] Allergies Allergen (clinical drug ingredient) Drug/Non Drug [...] 05/01/2024 Encounters Encounter Location Date [facility] [place] [address] 05/01/2024 Anjali Watson Plan Of Treatment No Information Progress Notes * Kirstie WADSWORTHDOB:1969 (54 yo F)Acc No.[id number]:05/01/2024 Progress Notes Patient:?Kirstie WADSWORTH Provider:?Anjali Watson DPM :1970???Age:53 Y???Sex:Female D ate:05/01/2024 Address:[address] [facility], [id number] Pcp:Shahram Jeffery Subjective: * Chief Complaints: * [...] trouble?denies.?Confusion?denies.?Fainting/blackouts?denies.?Tingling?denies.?Tr emors?denies.? * Medical History:?Broken bone s, Guillain-[place] syndrome (GBS), Transfusions. * Surgical History:?knee surge [...] swimming, walking. ?Marital status: . 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 * Medications:?Taking Wegovy 0 .5 MG/0.5ML Solution [...]
== END 2025-01-17 10:52 | disposition home or self-care (01) ==
LOC: HO.HMCH 10:11
PROVIDERS: PCP Internal Medicine; Visit Provider Internal Medicine
DX: Z00.00 Encounter for general adult medical examination without abnormal findings (principal); E66.9 Obesity, unspecified; Z68.33 Body mass index [BMI] 33.0-33.9, adult; Z12.31 Encounter for screening mammogram for malignant neoplasm of breast; I73.00 Raynaud's syndrome without gangrene

== ENCOUNTER → 2025-01-17 10:11 | Outpatient (BNVA) | payer OTHER, SELFPAY | PROVIDERS: PCP Internal Medicine; Visit Provider Internal Medicine | DX: Z00.00 Encounter for general adult medical examination without abnormal findings (principal); E66.9 Obesity, unspecified; Z68.33 Body mass index [BMI] 33.0-33.9, adult; I73.00 Raynaud's syndrome without gangrene | CPT/HCPCS: 96127 ==

== ENCOUNTER 2025-03-25 13:47 | Outpatient (AMB) | payer OTHER, SELFPAY ==
--- OUTSIDE RECORDS SUMMARY | 2024-04-19 04:30 | XMS_ITS ---
Author Organization [facility] Address [address] [place] [address] Care Team Providers Care Shipping Track Supervisor Name Role Phone Shahram Jeffery Primary Care Provider UnavailAnjali Beltran [phone] Encounters Encounter Location Date Provider Diagnosis [address] [address] 04/19/2024 Anjali Watson Plan Of Treatment No Information Progress Notes * Delvin WADSWORTHreinaDOB:1969 (54 yo F)Acc No.[id number]:04/19/2024 Progress Notes Patient: Kirstie ECHEVERRIA Provider: Arielle Watson DPM :1970 A ge:53 Y S ex:Female Date:04/19/2024 Address:[address] [place] [phone] Pcp:Shahram Jeffery Subjective: * Chief Complaints: * * Medical History: Objective: * Vitals: Assessment: Plan: * Treatment: * Images: * The named appointment provid er may or may not be the originator of this progress note, and it is not deemed complete until electronically signed by the appointment provider. Sign off status: Pending * Provider: Arielle Watson DPM Date: 04/19/2024 Generated for Printi ng/Faxing/eTransmitting on: 03/25/2025 03:09 PM EDT
--- NOTE | 2025-03-25 13:48 | A.OFFPC_ITS ---
Vital Signs 03/25/25 14:01 Height 5 ft 9 in Weight 226 lb BMI 33.4 BP 118/80 Blood Pressure Location Lt brachial Position Sitting Pulse 78 Pulse Source Pulse Oximeter Pulse Oximetry (%) 98 Oxygen Delivery Method Room Air Intake Visit Reasons: 3mth f/u Intake Note: Patient here for a 3 month follow up Business Analytics Specialist Required: No Accompanied by: Self / Same As Patient Allergies No Known Allergies Allergy (Verified 03/25/25 14:06) Medication List - Last Reconciled 03/25/25 by Shahram Jeffery MD semaglutide (weight loss) 2.4 mg (0.75 mL) subcut QWEEK 30 days Tobacco use date assessed: 12/09/24 Dental Screening Dental Screen Date: 12/09/24 [facility] Medical History Ankle pain, left Morbid obesity 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 Daughter No problems noted. Family/Other Colon cancer Mother Lung cancer Social History Housing: House Are you a primary wound care rn to a significant other at home: No Do you presently have visiting nurse or other home services: No Alcohol intake: current Alcohol intake frequency: a few times a month Comment: once a week 1 drink Patient Tobacco Use Status: Never used Tobacco e-Cigarette/Vaping Use: Never Used Second Hand Smoke Exposure: No service: No Current occupational status: employed Current occupational exposures/hazards: No Cognitive needs: No Hearing needs: No Vision needs: Yes Questionnaire Thrive Questionnaire Date Thrive assessed: 01/17/25 I am a: Patient What is your living situation today?: I have a steady place to live Within the past 12 months, did the food you bought not last and you didn't have the money to get more?: Never true Within the past 12 months, did you worry whether your food would run out before you got money to buy more?: Never true Do you have trouble paying for medicines?: No Do you have trouble getting transportation to medical appointments?: No Do you have trouble paying your heating and electricity bill?: No Do you have trouble taking care of your child, family member or friend?: No Do you have trouble with day-to-day activities such as bathing, preparing meals, shopping, managing finances, etc.?: No Are you currently unemployed and looking for a job?: No Are you interested in more education?: No Please select the resources that you would like help with: None Currently or been in a relationship where the following occur: No concerns reported THRIVE Score: 0 AUDIT C Alcohol Use Questionnaire (AUDIT-C) 1. How often do you have a drink containing alcohol?: 2-4 times a month 2. How many drinks containing alcohol do you have on a typical day when you are drinking?: 1 or 2 3. How often do you have six or more drinks on one occasion?: Never Total Score: 2 RHIANNA-7 AMB Questionnaire RHIANNA-7 Date RHIANNA - 7 assessed: 12/09/24 Source: Developed by Drs. Sanjiv Conley, Gabby Peterson, Jair Restrepo and colleagues, with an educational melissa from [employer]. Physical exam (Primary Care) Vital Signs: Last Vital Signs Pulse 78 03/25/25 14:01 BP 118/80 03/25/25 14:01 Pulse Ox 98 03/25/25 14:01 Oxygen Delivery Method Room Air 03/25/25 14:01 BMI result Body Mass Index 33.4 Tobacco/Smoking Status: Tobacco use Status Tobacco use date assessed 12/09/24 03/25/25 13:49 Patient Tobacco Use Status Never used Tobacco 03/25/25 13:49 Tobacco use type 03/25/25 14:07 e-Cigarette/Vaping Use Never Used 03/25/25 13:49 Thrive Assessment: Date of Thrive Assessment Date Thrive assessed 01/17/25 03/25/25 13:49 Currently or been in a relationship where the following occur: No concerns reported Const General: alert; No acute distress Eyes Conjunctivae: conjunctivae normal Resp Auscultation: clear to auscultation bilaterally Cardio Rate: regular rate Rhythm: regular rhythm GI Inspection: Yes normal to inspection Extrem General: Yes normal to inspection and No edema Coding Level of Care Code Est Pt Level 3 (14722) Diagnoses Obesity (BMI 30-39.9) E66.9 Osteoarthritis of left knee M17.12 Assessment & Plan Assessment & Plan (1) Obesity (BMI 30-39.9): Code(s): E66.9 - Obesity, unspecified Category: Medical Plan: Diet And exercise (2) Osteoarthritis of left knee: Code(s): M17.12 - Unilateral primary osteoarthritis, left knee Category: Medical Plan History of Present Illness The patient is a 54-year-old female presenting for a follow-up visit. 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 The patient also reports having osteoarthritis in her left knee, which causes discomfort and may limit her mobility. Additionally, she has Raynaud's phenomenon, a condition that affects blood flow to certain parts of the body, such as fingers and toes, usually triggered by cold temperatures or stress. She also has diverticular disease, which involves the formation of small bulges or pockets in the lining of the intestine. The patient is obese, which is a significant risk factor for various health conditions and may complicate her existing medical issues. Her last blood work was conducted in 2019, and she has been advised to have it updated. Preventative care measures are up to date, including a mammogram and colonoscopy performed in September 2024. Health Maintenance - Mammogram up to date as of September 2024 - Colonoscopy up to date as of September 2024 - Advised to update blood work, last done in 2018 Social History - Employment: Works from home three to four days a week - Exercise: Attends gym regularly and monitors weight and diet closely Review of Systems - Gastrointestinal: Denies nausea or vomiting Physical Exam Results Plan The patient is advised to continue with her current exercise regimen and dietary monitoring to manage her obesity. She is currently on semaglutide 1.7 mg and has expressed a desire to increase the dose to 2.4 mg to enhance weight management outcomes. The patient is reminded to complete her blood work, which was last done in 2018, to ensure comprehensive health monitoring. Follow-up is scheduled for three months to reassess her condition and adjust treatment as necessary. Patient was informed and verbally consented to the use of an ambient scribe for clinic note documentation during this visit. Discussion Notes During the visit, we discussed the importance of maintaining her exercise and dietary habits to manage obesity effectively. We also talked about increasing her semaglutide dose to 2.4 mg to potentially improve her weight management re sults. I advised her to complete her overdue blood work to monitor her health status accurately. A follow-up appointment was scheduled for three months to evaluate her progress and make any necessary adjustments to her treatment plan. Patient Instructions - Continue regular exercise and monitor diet closely. - Increase semaglutide dose to 2.4 mg as discussed. - Complete blood work as soon as possible. - Return for follow-up in three months. Medications: Changed From semaglutide (weight loss) administer weeks 1 through 4 of therapy 1.7 mg (0.75 mL) subcut QWEEK 1 month 3.75 mL 4RF E66.01 - Morbid (severe) obesity due to excess calories To semaglutide (weight loss) administer weeks 1 through 4 of therapy 2.4 mg (0.75 mL) subcut QWEEK 3.75 mL 4RF 30 days E66.01 - Morbid (severe) obesity due to excess calories
[2025-03-25 14:01] VITALS: BP 118/80; PULSE 78; O2SAT 98; BMI 33.4
== END 2025-03-25 14:17 | disposition home or self-care (01) ==
LOC: HO.HMCH 13:47
PROVIDERS: PCP Internal Medicine; Visit Provider Internal Medicine
DX: M17.12 Unilateral primary osteoarthritis, left knee (principal); E66.9 Obesity, unspecified; Z68.33 Body mass index [BMI] 33.0-33.9, adult

== ENCOUNTER 2025-08-25 14:43 | Outpatient (AMB) | payer OTHER, SELFPAY ==
--- OUTSIDE RECORDS SUMMARY | 2024-04-19 03:30 | XMS_ITS ---
Author Organization [facility] Address [address] [place] [address] Care Team Providers Care Buildings And Grounds Superintendent Name Role Phone Shahram Jeffery Primary Care Provider UnavailAnjali Beltran [phone] Encounters Encounter Location Date Provider Diagnosis [address] [address] 04/19/2024 Anjali Watson Plan Of Treatment No Information Progress Notes * Delvin WADSWORTHreinaDOB:1969 (55 yo F)Acc No.[id number]:04/19/2024 Progress Notes Patient: Kirstie ECHEVERRIA Provider: Arielle Watson DPM :1970 A ge:53 Y S ex:Female Date:04/19/2024 Address:[address] [place] [id number] Pcp:Shahram Jeffery Subjective: * Chief Complaints: * * Medical History: Objective: * Vitals: Assessment: Plan: * Treatment: * Images: * The named appointment provid er may or may not be the originator of this progress note, and it is not deemed complete until electronically signed by the appointment provider. Sign off status: Pending * Provider: Arielle Watson DPM Date: 0 04/19/2024 Generated for Printi ng/Faxing/eTransmitting on: 1 10/26/2024 09:14 PM EST
--- OUTSIDE RECORDS SUMMARY | 2024-05-01 03:30 | XMS_ITS ---
Author Organization [facility] radha [place] Address [address] [place] [address] Care Team Providers Care Certified Personal Trainer Name Role Phone Shahram Jeffery Primary Care Provider Unavaillisa e Anjali Watson Unavailable [phone] Allergies Allergen (clinical drug ingredient) Drug/Non Drug Allergy documented on EMR Reaction Allergy Type Onset Date Status Adhesive Unknown Allergy Active Medications Medication SIG (Take, Route, Fr equency, Duration) Notes Start Date End Date Status Wegovy 0.5 MG/0.5ML 0.5 mL Subcutaneous Active Social History Tobacco Use: Social History Observation Description Date Details (start date - stop date) Never Smoker NA - NA Tobacco Use/Smoking Question Answer Notes Are you a: nonsmoker Additional Findings: Tobacco Non-User Current no n-smoker Alcohol Screen Question Answer Notes Did you have a drink containing alcohol in the p ast year? Yes Points 0 Interpretation Negative Tobacco use other than smoking: Question Answer Notes Are you an other tobacco user? No Vital Signs Height 5 ft 9 in in 05/01/2024 Weight 260 lbs 05/01/2024 BMI 38.39 kg/m2 05/01/2024 Encounters [facility]counter [facility] Date [facility] [place] [address] [facility] Anjali Watson Plan Of Treatment No Information Progress Notes * Kirstie WADSWORTHDOB:1969 (55 yo F)Acc No.[id number]:05/01/2024 Progress Notes Patient: Arielle DOMINGOKirstie FORDE Provider: Arielle Watson DPM :1970 A ge:53 Y S ex:Female Date:05/01/2024 Address:[address] [place] [address], [place], [id number] Pcp:Shahram Jeffery Subjective: * Chief Complaints: * * ROS: G eneral/Constitutional: Nausea d enies. V omiting d enies. H nico Thirst d enies. L oss appetite d enies. C hills d enies. F atigue d enies.?Fever d enies. N ight Sweats d enies. U nexplained weight loss d enies. U nexplained weight gain d enies. H EENTM: Dentures d enies. D izziness d enies. G lasses/contacts d enies. R etinopathy d enies. B lurred/double vision d enies. T MJ?denies. D ischarge/drainage d enies. I mplants d enies. S ore throat d enies. D ental implants d enies. H jaun of hearing d enies. D ifficulty chewing/swallowing/speaking d enies. N ose bleeds d enies. S ore mouth d enies. ? R espiratory: On Oxygen d enies. P neumonia/pleurisy d enies.?Bronchitis d enies. E mphysema d enies. C oughing d enies. C ough blood?denies. S hortness of breath d enies. W heezing d enies. C ardiovascular: Pacemaker d enies. M AGRICULTURAL PRODUCE WASHER d enies. W PW d enies. C HF d enies. H eart attack d enies. S eptal defect d enies. R apid beat d enies. C hest pain d enies. A trial Fib. d enies. M urmur/Palpitations d enies. G astrointestinal: Hemorrhoids d enies. S tomach/Abdominal pain d enies. D ark blood stool d enies. I rritable bowel d enies. C onstipation d enies. D iarrhea d enies. H ematology: Swelling d enies. C lots d enies. V aricose Veins d enies. B ruising d enies. B leeding problem d enies. G enitourinary: Blood urine d enies. F requent/Painfu/urination/bladder control d enies. K idney stones d enies. I nfection (UTI) d enies. N ephropathy d enies. s ex trans dis (STD) d enies. P rostate d enies. M usculoskeletal: Hammertoes a dmits. B unions a dmits. B ack Pain d enies. M uscle Cramps/ Resting d enies. M uscle cramps / walking a dmits.?Generalized aches and pains d enies. W eakness d enies. I nteg.: Sim d enies. S cars d enies. C orns/calluses?denies. I ngrown nails d enies. P ainful nails d enies. O pen Sores d enies. R ashes d enies. N eurologic: Difficulty sleeping d enies. B rain disorder d enies. N umbness d enies. B alance trouble d enies. C onfusion d enies. F ainting/blackouts d enies. T ingling d enies. T remors d enies. * Medical History: B roken bones, Guillain-Denver syndrome (GBS), Transfusions. * Surgical History: k nee surgery 12/2009, back surgery 10/1999, 10/2004. * Family History: M other: , diagnosed with Family history of arthritis, Diabetic - NIDDM, Unspecified essential hypertension, Other malignant neoplasm of unspecified site. F ather: alive, diagnosed with Diabetic - NIDDM, Unspecified essential hypertension, Unspecified heart disease, Other specified conditions influencing health status. M aternal aunt: diagnosed with Family history of arthritis. * Social History: T obacco Use: T obacco Use/Smoking A re you a: n onsmoker A dditional Findings: Tobacco Non-User C urrent non-smoker Tobacco use other than smoking A re you an other tobacco user? N o D rugs/Alcohol: D rugs H ave you used drugs other than those for medical reasons in the past 12 months? N o Alcohol Screen D id you have a drink containing alcohol in the past year? Y es P oints 0 I nterpretation N egative M iscellaneous: C affeine: yes, 2-3 cups per day. Children: yes, 2. Exercise: yes, travel, swimming, walking. Marital status: . 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 * Medications: T aking Wegovy 0.5 MG/0.5ML Solution Auto-injector 0.5 mL Subcutaneous * Allergies: A dhesive. Objective: * Vitals: H t: 5 ft 9 in, Wt:260, BMI:38.39, Shoe size: 8.5 W, Ht-cm: 175.26 cm, Wt-k.93 kg. Assessment: Plan: * Treatment: * Images: * The named appointment provid er may or may not be the originator of this progress note, and it is not deemed complete until electronically signed by the appointment provider. Sign off status: Pending * Provider: Arielle Watson DPM Date: 0 05/01/2024 Generated for José Miguel chase/Zi/Hernan on: 1 10/26/2024 09:14 PM EST
--- NOTE | 2025-08-25 14:53 | A.OFFPC_ITS ---
Vital Signs 08/25/25 14:56 Height 5 ft 9 in Weight 213 lb 4 oz BMI 31.5 BP 118/80 Pulse 69 Pulse Source Pulse Oximeter Temp 96.8 F Pulse Oximetry (%) 99 Oxygen Delivery Method Room Air Intake Visit Reasons: obesity Virtual Reality Specialist Required: No Accompanied by: Self / Same As Patient Allergies No Known Allergies Allergy (Verified 08/25/25 14:54) Medication List - Last Reconciled 08/25/25 by Shahram Jeffery MD semaglutide (weight loss) 2.4 mg (0.75 mL) subcut QWEEK 30 days Tobacco use date assessed: 12/09/24 Dental Screening Dental Screen Date: 12/09/24 HPI obesity HPI Details Breast lift tummy mali and liposuction Dr. Bello May 28, 2025. since april has not taken semaglutide HPI Comments History of Present Illness Details History of Present Illness The patient is a 55-year-old female presenting for a follow-up visit for weight management. She has a history of obesity and reports a 13-month history of weight loss. The patient discontinued semaglutide in April and has maintained her weight by adhering to her diet and increasing her physical activity. She has found success in weighing herself daily and being strict with her diet if she notices any weight gain. On May 28, the patient underwent elective cosmetic surgery, including a breast lift, abdominoplasty, and liposuction, performed by Dr. Parvez Foley at [facility]. She reports she is healing well from the procedures. Her past medical history is significant for Guillain-Jefferson?? syndrome in 1995, left ankle osteoarthritis, diverticular disease, and renal disease. Due to her history of Guillain-Jefferson?? syndrome, she does not receive vaccines. Her last blood work was in 2018, which showed a normal blood count and an LDL of 107 mg/dL. Health maintenance screenings are scheduled for September 2024, including a mammogram and colonoscopy. She was seen by gynecology in July 2025 and dermatology on July 18 for benign skin issues. Health Maintenance The patient was advised to obtain blood work, which she has not yet completed. She plans to get her blood work done before her next visit. The next appointment will be scheduled as a complete physical. Social History - Diet: The patient reports maintaining the diet she was on while taking semaglutide, which includes very little sugar, and focusing on fresh foods. - Exercise: She is increasing her physic al activity. - Stress Management: The patient is prac ticing de-escalating stress and not worrying about things she cannot change. - Social Habits: The patient avoids larg e crowds to prevent getting sick. Results - Labs: Blood work from 2019 showed a no rmal blood count and an LDL of 107. - Tests and Diagnostics: A gynecology re port was received and noted to be good. - Tests and Diagnostics: A dermatology r eport was received and noted to be fine. [facility] Medical History Ankle pain, left Morbid obesity 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 Daughter No problems noted. Family/Other Colon cancer Mother Lung cancer Social History Housing: House Are you a primary nanny caregiver to a significant other at home: No Do you presently have visiting nurse or other home services: No Alcohol intake: current Alcohol intake frequency: a few times a month Comment: once a week 1 drink Patient Tobacco Use Status: Never used Tobacco e-Cigarette/Vaping Use: Never Used Second Hand Smoke Exposure: No service: No Current occupational status: employed Current occupational exposures/hazards: No Cognitive needs: No Hearing needs: No Vision needs: Yes Questionnaire Thrive Questionnaire Date Thrive assessed: 01/17/25 I am a: Patient What is your living situation today?: I have a steady place to live Within the past 12 months, did the food you bought not last and you didn't have the money to get more?: Never true Within the past 12 months, did you worry whether your food would run out before you got money to buy more?: Never true Do you have trouble paying for medicines?: No Do you have trouble getting transportation to medical appointments?: No Do you have trouble paying your heating and electricity bill?: No Do you have trouble taking care of your child, family member or friend?: No Do you have trouble with day-to-day activities such as bathing, preparing meals, shopping, managing finances, etc.?: No Are you currently unemployed and looking for a job?: No Are you interested in more education?: No Please select the resources that you would like help with: None Currently or been in a relationship where the following occur: No concerns reported THRIVE Score: 0 RHIANNA-7 AMB Questionnaire RHIANNA-7 Date RHIANNA - 7 assessed: 12/09/24 Source: Developed by Drs. Sanjiv Conley, Gabby Peterson, Jair Restrepo and colleagues, with an educational melissa from [employer]. Review of Systems Narrative Review of Systems - Gastrointestinal: Reports good bowel movements. - Genitourinary: Reports no issues with urination. - Integumentary: Reports no redness at her surgical sites and that her prior skin issues are fine. Physical exam (Primary Care) Vital Signs: Last Vital Signs Temp 96.8 F 08/25/25 14:56 Pulse 69 08/25/25 14:56 BP 118/80 08/25/25 14:56 Pulse Ox 99 08/25/25 14:56 Oxygen Delivery Method Room Air 08/25/25 14:56 BMI result Body Mass Index 31.5 Tobacco/Smoking Status: Tobacco use Status Tobacco use date assessed 12/09/24 08/25/25 14:54 Patient Tobacco Use Status Never used Tobacco 08/25/25 14:54 Tobacco use type Cigarette 01/17/25 10:17 e-Cigarette/Vaping Use Never Used 08/25/25 14:54 Thrive Assessment: Date of Thrive Assessment Date Thrive assessed 01/17/25 08/25/25 14:54 Currently or been in a relationship where the following occur: No concerns reported Narrative Physical Exam - Respiratory: Lungs clear to auscultation bilaterally. - Integumentary: Surgical sites healing well with no erythema. Const General: alert; No acute distress Eyes Conjunctivae: conjunctivae normal Resp Auscultation: clear to auscultation bilaterally Cardio Rate: regular rate Rhythm: regular rhythm GI Inspection: Yes normal to inspection Extrem General: Yes normal to inspection and No edema Coding Level of Care Code Est Pt Level 3 (92540) Add On Problem Visit Only Diagnoses Obesity (BMI 30-39.9) E66.9 Assessment & Plan Assessment & Plan (1) Obesity (BMI 30-39.9): Code(s): E66.9 - Obesity, unspecified Category: Medical Plan: Diet and exercise. Continue with semaglutide Plan Plan Patient was informed and verbally consented to the use of an ambient scribe for clinic note documentation during this visit. 1. Obesity The patient has successfully managed her weight through diet and exercise after discontinuing semaglutide in April. She will continue with her current lifestyle modifications. She retains a supply of semaglutide to use if needed. Discussion Notes I reviewed the patient's recent elective cosmetic surgeries (breast lift, tummy tuck, liposuction) and confirmed she is healing well. We discussed her success with weight management since discontinuing semaglutide in April, which she has achieved through diet and increased activity. I acknowledged the dermatology and gynecology notes I received. We discussed her history of Guillain-Jefferson?? syndrome and the associated decision to avoid vaccinations. The patient agreed to get blood work done before her next visit, which will be scheduled as a complete physical. I advised her to let me know if any issues arise in the interim. Patient Instructions - Continue with your current diet and exercise plan for weight management. - Please get your blood work done before your next appointment. - We will schedule your next visit as a complete physical exam. - Contact the office if any new problems or concerns arise before your next scheduled visit.
[2025-08-25 14:56] VITALS: BP 118/80; PULSE 69; TEMP 36; O2SAT 99; BMI 31.5
--- OUTSIDE RECORDS SUMMARY | 2025-08-25 21:14 | XMS_ITS | Patient Health Record ---
Author Organization [facility] Address [address] [place] [address] Care Team Providers Care Manager Combination Name Role Phone Shahram Jeffery Primary Care Provider Unavaillisa e Black, Anjali Unavailable [phone] Allergies Allergen (clinical drug ingredient) Drug/Non Drug Allergy documented on EMR Reaction Allergy Type Onset Date Status Adhesive Unknown Allergy Active Reason For Referral No Information Medications Medication [...] Status Risk Notes Problem Acquired hallux valgus (22515717) Hallux valgus (acquired), right foot (M20.11) Active confirmed Problem Acquired hammer toe of right foot (1321573839338022) Other hammer toe(s) (acquired), right foot (M20.41) Active confirmed Problem Localized, primary osteoarthritis of the ankle and/or foot (611675408) Arthritis of joint of lesser toe, right (M19.071) Active confirmed Plan Of Treatment No Information Insurance Providers Payer Name Payer Address Payer Phone Subscriber Number Group Number Insured Name Patient Relationship to Insured Coverage Start Date Coverage End Date [facility]) [address] [place] [address] [id number] TrigKirstie weiss Self - patient is the insured Medical (General) History Medical History History ICD Code Broken bones Guillain-[place] syndrome (GBS) Transfusions Surgical History Surgery Date(Month/Year) knee surgery 12/2009 back surgery 10/1999 10/2004
== END 2025-08-25 15:14 | disposition home or self-care (01) ==
LOC: HO.HMCH 14:43
PROVIDERS: PCP Internal Medicine; Visit Provider Internal Medicine
DX: E66.9 Obesity, unspecified (principal); Z68.30 Body mass index [BMI] 30.0-30.9, adult